=== PATIENT | male | born 1965 | race Native Hawaiian/Other Pacific Islander ===

== ENCOUNTER 2020-06-16 09:10 | Day surgery (SDC) | payer OTHER ==
[2020-06-16] VITALS (11 sets, daily range): BP systolic 126–173; BP diastolic 68–93
[~2020-06-16] VITALS: Ht 170.2 cm; Wt 129.1 kg
[~2020-06-16 09:10] MED LIST: AMLO10TA7 PO; AMLO5TAB4 PO; AMLO5TAB9 PO; ASPI-983 PO; ATOR20TA66 PO; ATOR80TA76 PO; CARV25TA PO; CLOP75TA28 PO; CRV25T PO; FURO-124 PO; FURO40TA4 PO; FURO80TA3 PO; GABA-488 PO; GLIP5TAB13 PO; HYDR-3817 PO; HYDR-3924 PO; INSU100I10 SC; INSU100I14 SQ; INSU100I23 SQ; LOSA100T57 PO; METO5TAB6 PO; OMEP20CA18 PO; POTA8CAP20 PO; POTA8TAB2 PO; PREG75CA PO; TICA90TA PO
[2020-06-16] MEDS ORDERED: NS IV 1000 ML 1,000 ML IV SCH (09:27)
--- NOTE | 2020-06-16 09:32 | ED Abdominal Pain ---
General Chief Complaint: Abdominal/GI Problems Stated Complaint: ABD PAIN Source of Information: Patient Exam Limitations: No Limitations History of Present Illness Date Seen by Provider: Jun 16, 2020 Time Seen by Provider: 09:14 Initial Comments Patient presents to ER by private conveyance from home with chief complaint that he's having some epigastric abdominal pain radiating to his right upper quadrant since yesterday after eating an apricot. It was intermittent gripping cramping like and sharp. Then he ate some pizza with meat on it which set off even worse until about 2 in the morning. He did not take anything for the pain. He does take omeprazole daily. He has a history of cholelithiasis being worked up o utpatient by his doctor at the [facility]. They're trying to get him set up for an MRCP. He does not follow with a surgeon yet. He's not having any fevers or nausea and just feeling of uncomfortableness. The car ride over was not any worse than it is now. He has a history of heart failure, heart disease, diabetes on short acting insulin, chronic kidney disease stage IV. He's had 3 separate surgeries for umbilical hernias including the last one had to resect about a 4 inch section of bowel that had become adhesed to the mesh. This has since then healed. He says last week his blood sugars are running normal round 140 using sliding scale insulin however the past few days they've been running high and he's had a couple above 300. No fevers or chills. No history of pancreatitis. He quit drinking 2 years ago. He does daily weights and says he was 281 yesterday and 284 this morning. He denies having increasing swelling in his legs or abdomen. Patient is on Brilinta but no blood thinners. Allergies and Home Medications Allergies Coded Allergies: No Known Drug Allergies (Unverified , 07/25/19) Home Medications Amlodipine Besylate 10 Mg Tablet, 10 MG PO DAILY, (Reported) Aspirin 81 Mg Tablet.dr, 81 MG PO DAILY, (Reported) Atorvastatin Calcium 80 Mg Tablet, 80 MG PO DAILY, (Reported) Carvedilol 25 Mg Tab, 25 MG PO BID, (Reported) Furosemide 40 Mg Tablet, 80 MG PO DAILY, (Reported) TAKES 2 (40MG) TABS Furosemide 40 Mg Tablet, 40 MG PO 1700, (Reported) Hydrocodone/Acetaminophen 1 Each Tablet, 1 EACH PO Q6H PRN for PAIN-SEVERE (8- 10) Prescribed by: MYAH LEYVA on 03/17/20 1321 Insulin Aspart 300 Units/3 Ml Solution, 15-25 UNITS SQ AC, (Reported) Insulin Glargine,Hum.rec.anlog 100 Unit/1 Ml Insuln.pen, 80 UNITS SC HS, (Reported) Losartan Potassium 100 Mg Tablet, 100 MG PO DAILY, (Reported) Metolazone 5 Mg Tablet, 5 MG PO DAILY, (Reported) Omeprazole 20 Mg Capsule.dr, 20 MG PO DAILY, (Reported) Potassium Chloride 8 Meq Tablet.er, 8 MEQ PO 1999, (Reported) Potassium Chloride 8 Meq Capsule.er, 16 MEQ PO DAILY, (Reported) TAKES 2 (8MEQ) TABS Pregabalin 75 Mg Capsule, 75 MG PO BID, (Reported) Ticagrelor 90 Mg Tablet, 90 MG PO BID, (Reported) Patient Home Medication List Home Medication List Reviewed: Yes Review of Systems Review of Systems Constitutional: No chills, No diaphoresis EENTM: No Blurred Vision, No Double Vision Respiratory: Denies Cough, Denies Shortness of Air Cardiovascular: Denies Chest Pain, Denies Edema Gastrointestinal: See HPI; Denies Abdomen Distended; Abdominal Pain; Denies Constipated, Denies Diarrhea, Denies Nausea Genitourinary: Denies Burning, Denies Discharge Musculoskeletal: No back pain, No joint pain Skin: No pruritus, No rash Psychiatric/Neurological: Denies Headache, Denies Numbness All Other Systems Reviewed Negative Unless Noted: Yes Past [place]-Oshkbb-Mvjfup Hx Patient Social History Alcohol Use: Past History Recreational Drug Use: No Smoking Status: Former Smoker Type Used: Smokeless Tobacco 2nd Hand Smoke Exposure: No Recent Foreign Travel: No Contact w/Someone Who Travel: No Recent Hopitalizations: Yes (ADMITTED TO [facility] 12/23/19) Immunizations Up To Date Tetanus Booster (TDap): Unknown Date of Influenza Vaccine: Sep 05, 2019 Seasonal Allergies Seasonal Allergies: No Past Medical History Surgeries: Yes (Colon resection, Left foot surgery, umbilical hernia repair) Abdominal, Bowel Surgery, Coronary Stent, Orthopedic Respiratory: Yes Sleep Apnea Currently Using CPAP: No (NEEDS A MACHINE BUT HAVING ISSUES GETTING ONE) Currently Using BIPAP: No Cardiac: Yes Chronic Edema/Swelling, Coronary Artery Disease, High Cholesterol, Hypertension Neurological: Yes Neuropathy, TIA Genitourinary: Yes Renal Failure Gastrointestinal: No Musculoskeletal: No Endocrine: Yes Diabetes, Insulin dep HEENT: No Loss of Vision: Denies Hearing Impairment: Denies Cancer: No Psychosocial: No 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 8.0oz. [id number]; 52.11 BMI Method:Stated General Appearance: WD/WN, mild distress HEENT: PERRL/EOMI, pharynx normal Neck: full range of motion, normal inspection Respiratory: lungs clear, normal breath sounds, no respiratory distress, no ac cessory muscle use Cardiovascular: normal peripheral pulses, regular rate, rhythm, no edema Peripheral Pulses: 2+ Radial Pulses (R), 2+ Radial Pulses (L) Gastrointestinal: normal bowel sounds, soft, no organomegaly; No guarding, No rebound (no McBurney's point tenderness); tenderness (negative for Purdy sign. Tenderness to the epigastric and right upper quadrant region) Extremities: non-tender, normal inspection, normal capillary refill Neurologic/Psychiatric: alert, normal mood/affect, oriented x 3 Skin: normal color, warm/dry Progress/Results/Core Measures Results/Orders Lab Results Laboratory Tests Test 06/16/20 09:16 06/16/20 09:29 Range/Units Urine Color YELLOW Urine Clarity CLEAR Urine pH 6.0 5-9 Urine Specific Protivin 1.025 H 1.016-1.022 Urine Protein 3+ H NEGATIVE Urine Glucose (UA) 1+ H NEGATIVE Urine Ketones NEGATIVE NEGATIVE Urine Nitrite NEGATIVE NEGATIVE Urine Bilirubin NEGATIVE NEGATIVE Urine Urobilinogen 0.2 < = 1.0 MG/DL Urine Leukocyte Esterase NEGATIVE NEGATIVE Urine RBC (Auto) TRACE H NEGATIVE Urine RBC RARE /HPF Urine WBC NONE /HPF Urine Crystals NONE /LPF Urine Bacteria NONE /HPF Urine Casts NONE /LPF Urine Mucus NEGATIVE /LPF Urine Culture Indicated NO White Blood Count 12.4 H 4.3-11.0 10^3/uL Red Blood Count 4.51 4.35-5.85 10^6/uL Hemoglobin 12.5 L 13.3-17.7 G/DL Hematocrit 38 L 40-54 % Mean Corpuscular Volume 83 80-99 FL Mean Corpuscular Hemoglobin 28 25-34 PG Mean Corpuscular Hemoglobin Concent 33 32-36 G/DL Red Cell Distribution Width 14.3 10.0-14.5 % Platelet Count 302 130-400 10^3/uL Mean Platelet Volume 9.6 7.4-10.4 FL Neutrophils (%) (Auto) 76 H 42-75 % Lymphocytes (%) (Auto) 12 12-44 % Monocytes (%) (Auto) 6 0-12 % Eosinophils (%) (Auto) 5 0-10 % Basophils (%) (Auto) 1 0-10 % Neutrophils # (Auto) 9.4 H 1.8-7.8 X 10^3 Lymphocytes # (Auto) 1.5 1.0-4.0 X 10^3 Monocytes # (Auto) 0.7 0.0-1.0 X 10^3 Eosinophils # (Auto) 0.6 H 0.0-0.3 10^3/uL Basophils # (Auto) 0.1 0.0-0.1 10^3/uL Sodium Level 135 135-145 MMOL/L Potassium Level 3.8 3.6-5.0 MMOL/L Chloride Level 95 L 98-107 MMOL/L Carbon Dioxide Level 27 21-32 MMOL/L Anion Gap 13 5-14 MMOL/L Blood Urea Nitrogen 54 H 7-18 MG/DL Creatinine 2.91 H 0.60-1.30 MG/DL Estimat Glomerular Filtration Rate 23 BUN/Creatinine Ratio 19 Glucose Level 264 H 70-105 MG/DL Calcium Level 9.9 8.5-10.1 MG/DL Corrected Calcium 10.0 8.5-10.1 MG/DL Total Bilirubin 0.6 0.1-1.0 MG/DL Aspartate Amino Transf (AST/SGOT) 11 5-34 U/L Alanine Aminotransferase (ALT/SGPT) 12 0-55 U/L Alkaline Phosphatase 124 40-136 U/L Pro-B-Type Natriuretic Peptide 346.9 H <75.0 PG/ML Total Protein 7.6 6.4-8.2 GM/DL Albumin 3.9 3.2-4.5 GM/DL Lipase 49 8-78 U/L My Orders Orders - SARAI CORONEL Ua Culture If Indicated (06/16/20 09:16) Us Gallbladder [id number] (06/16/20 09:27) Ed Iv/Invasive Line Start (06/16/20 09:27) Ns Iv 1000 Ml (Sodium Chloride 0.9%) (06/16/20 09:27) Cbc With Automated Diff (06/16/20 09:27) Comprehensive Metabolic Panel (06/16/20 09:27) Lipase (06/16/20 09:27) Chest 1 View Ap/Pa Only (06/16/20 09:27) Probnp Fs (06/16/20 09:27) Famotidine Injection (Pepcid Injection) (06/16/20 09:45) Medications Given in ED Current Medications Medications Dose Ordered Sig/Kaitlynn Route Start Time Stop Time Status Last Admin Dose Admin Famotidine 20 mg ONCE ONCE IVP 06/16/20 09:45 06/16/20 09:46 DC 06/16/20 10:02 20 MG Vital Signs/I&O 06/16/20 09:15 Temp 36.7 Pulse 62 Resp 18 B/P (MAP) 161/74 (103) Pulse Ox 97 O2 Delivery Room Air Progress Progress Note : Time: 09:35 Progress Note Cholecystitis, pancreatitis, choledocholithiasis, Gastritis? He doesn't want anything for pain right now however we will give him some Pepcid in addition to his omeprazole that he already took. He's complaining of a 3 pound weight gain in the past one day so we'll get a chest x-ray and a BNP as well. Urinalysis. Ultrasound gallbladder. Diagnostic Imaging Diagonstic Imaging: Xray Plain Films/CT/US/NM/MRI: chest Comments No acute cardiopulmonary processes on 1 on Chest x-ray. Reviewed: Reviewed by Me Diagonstic Imaging: Ultrasound Plain Films/CT/US/NM/MRI: abdomen (right upper quadrant gallbladder) Reviewed: Reviewed by Me Departure Communication (Admissions) Time/Spoke to Admitting Phy: 10:15 Discussed the case with Dr. Gill and he has offered to do the patient ate or outpatient or same day surgery today. The patient has elected to do it today. We discussed the labs heart failure kidney failure and Dr. Gill said he will talk to warehouse receiver and get set up so he can do the surgery today and if all goes well he would go home today. Impression Primary Impression: Cholelithiasis Qualified Codes: K80.20 - Calculus of gallbladder without cholecystitis without obstruction Additional Impression: Recurrent biliary colic Disposition: XFER SHT-TRM HOSP Condition: Stable Admissions Decision to Admit Reason: Admit from ER (General) Decision to Admit/Date: Jun 16, 2020 Time/Decision to Admit Time: 10:20 Departure-Patient Inst. Referrals: ESEQUIEL CARDONA DO (PCP/Family) Primary Care Physician SARAI CORONEL Jun 16, 2020 09:32
--- OUTSIDE RECORDS SUMMARY | 2020-06-16 09:32 | XMS REPORT | Continuity of Care Document ---
Author Organization Unknown Address Unknown Phone Unavailable Allergies Active Description Code Type Severity Reaction Onset Reported/Identified Relationship to Patient Clinical Status Yes NO KNOWN DRUG ALLERGIES UNKNOWN UNKNOWN Yes No Known Drug Allergies [id number] Drug Allergy Unknown N/A 07/25/2019 Medications Medication Packaging Start Date St op Date Route Dosage Sig NORMAL SALINE 1000CC IV BAG INJ 0.9 % (NS 1000CC IV BAG) ml 03/14/2020 03/29/2020 CONTINUOUSEVERY 0 Hour Problems Date Dx Coded Attending Type Code Diagnosis Diagnosed By 07/27/2019 ESEQUIEL CARDONA DO, Ot M54.9 DORSALGIA, UNSPECIFIED 07/27/2019 MYAH LEYVA MD Ot E11. 40 TYPE 2 DIABETES MELLITUS WITH DIABETIC N 07/27/2019 MYAH LEYVA MD, Ot E66. 01 MORBID (SEVERE) OBESITY DUE TO EXCESS CA 07/27/2019 MYAH LEYVA MD, Ot E78. 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 1 HYPERTENSIVE EMERGENCY 07/27/2019 MYAH LEYVA MD, Ot I25. 10 ATHSCL HEART DISEASE OF [place] CORONARY 07/27/2019 MYAH LEYVA MD, Ot I25. 2 OLD MYOCARDIAL INFARCTION 07/27/2019 MYAH LEYVA MD, Ot I50. 9 HEART FAILURE, UNSPECIFIED 07/27/2019 MYAH LEYVA MD, Ot N18. 9 CHRONIC KIDNEY DISEASE, UNSPECIFIED 07/27/2019 MYAH LEYVA MD, Ot Z68. 42 BODY MASS INDEX (BMI) 45.0-49.9, ADULT 07/27/2019 MYAH LEYVA MD, Ot Z79. 4 GUSSET STITCHER (CURRENT) USE OF INSULIN 07/27/2019 MYAH LEYVA MD, Ot Z86. 73 PRSNL HX OF TIA (TIA), AND CEREB INFRC W 07/27/2019 MYAH LEYVA MD, Ot E11. 21 TYPE 2 DIABETES MELLITUS WITH DIABETIC N 07/27/2019 MYAH LEYVA MD, Ot E11. 40 TYPE 2 DIABETES MELLITUS WITH DIABETIC N 07/27/2019 MYAH LEYVA MD, Ot E66. 01 MORBID (SEVERE) OBESITY DUE TO EXCESS CA 07/27/2019 MYAH LEYVA MD, Ot E78. 00 PURE HYPERCHOLESTEROLEMIA, UNSPECIFIED 07/27/2019 MYAH LEYVA MD, Ot E78. 5 HYPERLIPIDEMIA, UNSPECIFIED 07/27/2019 MYAH LEYVA MD, Ot I11. 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 1 HYPERTENSIVE EMERGENCY 07/27/2019 MYAH LEYVA MD, Ot I25. 10 ATHSCL HEART DISEASE OF [place] CORONARY 07/27/2019 MYAH LEYVA MD, Ot I25. 2 OLD MYOCARDIAL INFARCTION 07/27/2019 MYAH LEYVA MD Ot I50. 33 ACUTE ON CHRONIC DIASTOLIC (CONGESTIVE) 07/27/2019 MYAH LEYVA MD, Ot I50. 9 HEART FAILURE, UNSPECIFIED 07/27/2019 MYAH LEYVA MD, Ot N18. 9 CHRONIC KIDNEY DISEASE, UNSPECIFIED 07/27/2019 MYAH LEYVA MD, Ot Z68. 42 BODY MASS INDEX (BMI) 45.0-49.9, ADULT 07/27/2019 MYAH LEYVA MD, Ot Z79. 4 INTERMEDIATE (CURRENT) USE OF INSULIN 07/27/2019 MYAH LEYVA MD, Ot Z86. 73 PRSNL HX OF TIA (TIA), AND CEREB INFRC W 07/30/2019 LISBET WILL DO Ot E11.40 TYPE 2 DIABETES MELLITUS WITH DIABETIC N 07/30/2019 LISBET WILL DO Ot E78.00 PURE HYPERCHOLESTEROLEMIA, UNSPECIFIED 07/30/2019 LISBET WILL DO Ot I10 ESSENTIAL (PRIMARY) HYPERTENSION 07/30/2019 LISBET WILL DO Ot I11.0 HYPERTENSIVE HEART DISEASE WITH HEART FA 07/30/2019 LISBET WILL DO Ot I50.9 HEART FAILURE, UNSPECIFIED 07/30/2019 LISBET WILL DO, Ot Z79.02 INTERMEDIATE (CURRENT) USE OF ANTITHROMBOTI 07/30/2019 WILL DO, LISBET Ot Z79.4 INTERMEDIATE (CURRENT) USE OF INSULIN 07/30/2019 WILL DO, LISBET Ot Z80.0 FAMILY HISTORY OF MALIGNANT NEOPLASM OF 07/30/2019 WILL DO, LISBET Ot Z80.1 FAMILY HISTORY OF MALIG NEOPLASM OF [place] 07/30/2019 WILL DO, LISBET Ot Z86.73 PRSNL HX OF TIA (TIA), AND CEREB INFRC W 07/30/2019 WILL DO, LISBET Ot Z98.890 OTHER SPECIFIED POSTPROCEDURAL STATES 07/31/2019 WING GARCIA MD Ot E11.4 0 TYPE 2 DIABETES MELLITUS WITH DIABETIC N 07/31/2019 WING GARCIA MD Ot E78.0 0 PURE HYPERCHOLESTEROLEMIA, UNSPECIFIED 07/31/2019 WING GARCIA MD Ot I11.0 HYPERTENSIVE HEART DISEASE WITH HEART FA 07/31/2019 WING GARCIA MD Ot I50.9 HEART FAILURE, UNSPECIFIED 07/31/2019 WING GARCIA MD Ot R06.0 2 SHORTNESS OF BREATH 07/31/2019 WING GARCIA MD Ot Z79.0 2 GUSSET STITCHER (CURRENT) USE OF ANTITHROMBOTI 07/31/2019 WING GARCIA MD Ot Z79.4 INTERMEDIATE (CURRENT) USE OF INSULIN 07/31/2019 WING GARCIA MD Ot Z80.0 FAMILY HISTORY OF MALIGNANT NEOPLASM OF 07/31/2019 WING GARCIA MD Ot Z80.1 FAMILY HISTORY OF MALIG NEOPLASM OF [place] 07/31/2019 WING GARCIA MD Ot Z86.7 3 PRSNL HX OF TIA (TIA), AND CEREB INFRC W 07/31/2019 WING GARCIA MD Ot Z98.8 90 OTHER SPECIFIED POSTPROCEDURAL STATES 07/31/2019 ESEQUIEL CARDONA DO Ot M54.9 DORSALGIA, UNSPECIFIED 08/02/2019 WILL DO, LISBET Ot E11.40 TYPE 2 DIABETES MELLITUS WITH DIABETIC N 08/02/2019 WILL DO, LISBET Ot E78.00 PURE HYPERCHOLESTEROLEMIA, UNSPECIFIED 08/02/2019 WILL DO, LISBET Ot I10 ESSENTIAL (PRIMARY) HYPERTENSION 08/02/2019 WILL DO, LISBET Ot I11.0 HYPERTENSIVE HEART DISEASE WITH HEART FA 08/02/2019 WILL DO, LISBET Ot I50.9 HEART FAILURE, UNSPECIFIED 08/02/2019 WILL DO, LISBET Ot Z79.02 INTERMEDIATE (CURRENT) USE OF ANTITHROMBOTI 08/02/2019 WILL DO, LISBET Ot Z79.4 INTERMEDIATE (CURRENT) USE OF INSULIN 08/02/2019 WILL DO, LISBET Ot Z80.0 FAMILY HISTORY OF MALIGNANT NEOPLASM OF 08/02/2019 WILL DO, LISBET Ot Z80.1 FAMILY HISTORY OF MALIG NEOPLASM OF [place] 08/02/2019 WILL DO, LISBET Ot Z86.73 PRSNL HX OF TIA (TIA), AND CEREB INFRC W 08/02/2019 WILL DO, LISBET Ot Z98.890 OTHER SPECIFIED POSTPROCEDURAL STATES 08/05/2019 WING GARCIA MD Ot E11.4 0 TYPE 2 DIABETES MELLITUS WITH DIABETIC N 08/05/2019 WING GARCIA MD Ot E78.0 0 PURE HYPERCHOLESTEROLEMIA, UNSPECIFIED 08/05/2019 WING GARCIA MD Ot I11.0 HYPERTENSIVE HEART DISEASE WITH HEART FA 08/05/2019 WING GARCIA MD Ot I50.9 HEART FAILURE, UNSPECIFIED 08/05/2019 WING GARCIA MD Ot R06.0 2 SHORTNESS OF BREATH 08/05/2019 WING GARCIA MD, Ot Z79.0 2 INTERMEDIATE (CURRENT) USE OF ANTITHROMBOTI 08/05/2019 WING GARCIA MD Ot Z79.4 GUSSET STITCHER (CURRENT) USE OF INSULIN 08/05/2019 WING GARCIA MD Ot Z80.0 FAMILY HISTORY OF MALIGNANT NEOPLASM OF 08/05/2019 WING GARCIA MD Ot Z80.1 FAMILY HISTORY OF MALIG NEOPLASM OF [place] 08/05/2019 WING GARCIA MD Ot Z86.7 3 PRSNL HX OF TIA (TIA), AND CEREB INFRC W 08/05/2019 WING GARCIA MD Ot Z98.8 90 OTHER SPECIFIED POSTPROCEDURAL STATES 08/29/2019 ESEQUIEL CARDONA DO Ot M54.9 DORSALGIA, UNSPECIFIED 08/29/2019 Kingston HEBERT MD Ot E11 .9 TYPE 2 DIABETES MELLITUS WITHOUT COMPLIC 08/29/2019 Kingston HEBERT MD Ot I11 .0 HYPERTENSIVE HEART DISEASE WITH HEART FA 08/29/2019 EMILEE MATTHEWS, Kingston SEYMOUR Ot I24 .9 ACUTE ISCHEMIC HEART DISEASE, UNSPECIFIE 08/29/2019 EMILEE MATTHEWS, [place] SEYMOUR Ot I50.32 CHRONIC DIASTOLIC (CONGESTIVE) HEART SOCORRO 09/06/2019 EMILEE MATTHEWS, Kingston SEYMOUR Ot E11 .9 TYPE 2 DIABETES MELLITUS WITHOUT COMPLIC 09/06/2019 Kingston HEBERT MD Ot I11 .0 HYPERTENSIVE HEART DISEASE WITH HEART FA 09/06/2019 EMILEE MATTHEWS, [place] SEYMOUR Ot I24 .9 ACUTE ISCHEMIC HEART DISEASE, UNSPECIFIE 09/06/2019 Kingston HEBERT MD, Ot I50.32 CHRONIC DIASTOLIC (CONGESTIVE) HEART SOCORRO 09/12/2019 ESEQUIEL CARDONA DO Ot M54.9 DORSALGIA, UNSPECIFIED 11/27/2019 JLILIAN GUPTA MD, Ot E11.22 TYPE 2 DIABETES MELLITUS W DIABETIC RADAR TESTER 11/27/2019 JILLIAN GUPTA MD, Ot E11.40 TYPE 2 DIABETES MELLITUS WITH DIABETIC N 11/27/2019 JILLIAN GUPTA MD, Ot E78.00 PURE HYPERCHOLESTEROLEMIA, UNSPECIFIED 11/27/2019 JILLIAN GUPTA MD, Ot I13.0 HYP HRT CHR [place] DIS W HRT FAIL AND ST 11/27/2019 JILLIAN GUPTA MD, Ot I50.9 HEART FAILURE, UNSPECIFIED 11/27/2019 JILLIAN GUPTA MD, Ot N18.3 CHRONIC KIDNEY DISEASE, STAGE 3 (MODERAT 11/27/2019 JILLIAN GUPTA MD, Ot R06.02 SHORTNESS OF BREATH 11/27/2019 JILLIAN GUPTA MD, Ot Z79.02 INTERMEDIATE (CURRENT) USE OF ANTITHROMBOTI 11/27/2019 JILLIAN GUPTA MD, Ot Z79.4 INTERMEDIATE (CURRENT) USE OF INSULIN 11/27/2019 JILLIAN GUPTA MD, Ot Z80.0 FAMILY HISTORY OF MALIGNANT NEOPLASM OF 11/27/2019 JILLIAN GUPTA MD, Ot Z80.1 FAMILY HISTORY OF MALIG NEOPLASM OF [place] 11/27/2019 JILLIAN GUPTA MD, Ot Z86.73 PRSNL HX OF TIA (TIA), AND CEREB INFRC W 11/27/2019 JILLIAN GUPTA MD, Ot Z90.49 ACQUIRED ABSENCE OF OTHER SPECIFIED PART 12/03/2019 JILLIAN GUPTA MD, Ot E11.22 TYPE 2 DIABETES MELLITUS W DIABETIC RADAR TESTER 12/03/2019 CANDY MATTHEWS, JILLIAN Walker Ot E11.40 TYPE 2 DIABETES MELLITUS WITH DIABETIC N 12/03/2019 JILLIAN GUPTA MD, Ot E78.00 PURE HYPERCHOLESTEROLEMIA, UNSPECIFIED 12/03/2019 JILLIAN GUPTA MD Ot I13.0 HYP HRT CHR [place] DIS W HRT FAIL AND ST 12/03/2019 JILLIAN GUPTA MD, Ot I50.9 HEART FAILURE, UNSPECIFIED 12/03/2019 JILLIAN GUPTA MD, Ot N18.3 CHRONIC KIDNEY DISEASE, STAGE 3 (MODERAT 12/03/2019 JILLIAN GUPTA MD Ot R06.02 SHORTNESS OF BREATH 12/03/2019 JILLIAN GUPTA MD, Ot Z79.02 INTERMEDIATE (CURRENT) USE OF ANTITHROMBOTI 12/03/2019 JILLIAN GUPTA MD, Ot Z79.4 INTERMEDIATE (CURRENT) USE OF INSULIN 12/03/2019 JILLIAN GUPTA MD, Ot Z80.0 FAMILY HISTORY OF MALIGNANT NEOPLASM OF 12/03/2019 JILLIAN GUPTA MD, Ot Z80.1 FAMILY HISTORY OF MALIG NEOPLASM OF [place] 12/03/2019 JILLIAN GUPTA MD, Ot Z86.73 PRSNL HX OF TIA (TIA), AND CEREB INFRC W 12/03/2019 JILLIAN GUPTA MD, Ot Z90.49 ACQUIRED ABSENCE OF OTHER SPECIFIED PART 12/06/2019 ESEQUIEL CARDONA DO Ot M54.9 DORSALGIA, UNSPECIFIED 12/06/2019 Kingston HEBERT MD, Ot E11 .9 TYPE 2 DIABETES MELLITUS WITHOUT COMPLIC 12/06/2019 Kingston HEBERT MD Ot I11 .0 HYPERTENSIVE HEART DISEASE WITH HEART FA 12/06/2019 Kingston HEBERT MD Ot I24 .9 ACUTE ISCHEMIC HEART DISEASE, UNSPECIFIE 12/06/2019 Kingston HEBERT MD, Ot I50.32 CHRONIC DIASTOLIC (CONGESTIVE) HEART SOCORRO 12/07/2019 Kingston HEBERT MD, Ot E11.22 TYPE 2 DIABETES MELLITUS W DIABETIC RADAR TESTER 12/07/2019 Kingston HEBERT MD, Ot E66 .9 OBESITY, UNSPECIFIED 12/07/2019 Kingston HEBERT MD, Ot E78 .5 HYPERLIPIDEMIA, UNSPECIFIED 12/07/2019 Kingston HEBERT MD Ot 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 12/07/2019 Kingston HEBERT MD, Ot I25.10 ATHSCL HEART DISEASE OF [place] CORONARY 12/07/2019 Kingston HEBERT MD Ot I50.32 CHRONIC DIASTOLIC (CONGESTIVE) HEART SOCORRO 12/07/2019 Kingston HEBERT MD, Ot N18 .9 CHRONIC KIDNEY DISEASE, UNSPECIFIED 12/07/2019 Kingston HEBERT MD Ot Z79.02 GUSSET STITCHER (CURRENT) USE OF ANTITHROMBOTI 12/07/2019 Kingston HEBERT MD Ot Z79.899 OTHER GUSSET STITCHER (CURRENT) DRUG THERAPY 12/07/2019 Kingston HEBERT MD, Ot Z80 .9 FAMILY HISTORY OF MALIGNANT NEOPLASM, UN 12/07/2019 Kingsotn HEBERT MD, Ot Z82 .3 FAMILY HISTORY OF STROKE 12/07/2019 Kingston HEBERT MD, Ot Z82.49 FAMILY HX OF ISCHEM HEART DIS AND OTH DI 12/07/2019 Kingston HEBERT MD, Ot Z83 .3 FAMILY HISTORY OF DIABETES MELLITUS 12/07/2019 Kingston HEBERT MD, Ot Z86.73 PRSNL HX OF TIA (TIA), AND CEREB INFRC W 12/07/2019 Kingston HEBERT MD, Ot Z87.891 PERSONAL HISTORY OF NICOTINE DEPENDENCE 12/10/2019 Kingston HEBERT MD Ot E11.22 TYPE 2 DIABETES MELLITUS W DIABETIC RADAR TESTER 12/10/2019 Kingston HEBERT MD Ot E66 .9 OBESITY, UNSPECIFIED 12/10/2019 Kingston HEBERT MD, Ot E78 .5 HYPERLIPIDEMIA, UNSPECIFIED 12/10/2019 Kingston HEBERT MD Ot 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 12/10/2019 Kingston HEBERT MD Ot I25.10 ATHSCL HEART DISEASE OF [place] CORONARY 12/10/2019 Kingston HEBERT MD Ot I50.32 CHRONIC DIASTOLIC (CONGESTIVE) HEART SOCORRO 12/10/2019 Kingston HEBERT MD, Ot N18 .9 CHRONIC KIDNEY DISEASE, UNSPECIFIED 12/10/2019 Kingston HEBERT MD, Ot Z79.02 GUSSET STITCHER (CURRENT) USE OF ANTITHROMBOTI 12/10/2019 Kingston HEBERT MD, Ot Z79.899 OTHER GUSSET STITCHER (CURRENT) DRUG THERAPY 12/10/2019 Kingston HEBERT MD, Ot Z80 .9 FAMILY HISTORY OF MALIGNANT NEOPLASM, UN 12/10/2019 iKngston HEBERT MD, Ot Z82 .3 FAMILY HISTORY OF STROKE 12/10/2019 Kingston HEBERT MD, Ot Z82.49 FAMILY HX OF ISCHEM HEART DIS AND OTH DI 12/10/2019 Kingston HEBERT MD, Ot Z83 .3 FAMILY HISTORY OF DIABETES MELLITUS 12/10/2019 Kingston HEBERT MD, Ot Z86.73 PRSNL HX OF TIA (TIA), AND CEREB INFRC W 12/10/2019 Kingston HEBERT MD, Ot Z87.891 PERSONAL HISTORY OF NICOTINE DEPENDENCE 12/11/2019 Kingston HEBERT MD Ot E11.22 TYPE 2 DIABETES MELLITUS W DIABETIC RADAR TESTER 12/11/2019 Kingston HEBERT MD, Ot E66 .9 OBESITY, UNSPECIFIED 12/11/2019 Kingston HEBERT MD, Ot E78 .5 HYPERLIPIDEMIA, UNSPECIFIED 12/11/2019 Kingston HEBERT MD, Ot 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 12/11/2019 Kingston HEBERT MD, Ot I25.10 ATHSCL HEART DISEASE OF [place] CORONARY 12/11/2019 Kingston HEBERT MD, Ot I50.32 CHRONIC DIASTOLIC (CONGESTIVE) HEART SOCORRO 12/11/2019 Kingston HEBERT MD, Ot N18 .9 CHRONIC KIDNEY DISEASE, UNSPECIFIED 12/11/2019 Kingston HEBERT MD, Ot Z79.02 GUSSET STITCHER (CURRENT) USE OF ANTITHROMBOTI 12/11/2019 Kingston HEBERT MD, Ot Z79.899 OTHER GUSSET STITCHER (CURRENT) DRUG THERAPY 12/11/2019 Kingston HEBERT MD, Ot Z80 .9 FAMILY HISTORY OF MALIGNANT NEOPLASM, UN 12/11/2019 EMILEE MATTHEWS, [place] SEYMOUR Ot Z82 .3 FAMILY HISTORY OF STROKE 12/11/2019 Kingston HEBERT MD, Ot Z82.49 FAMILY HX OF ISCHEM HEART DIS AND OTH DI 12/11/2019 Kingston HEBERT MD, Ot Z83 .3 FAMILY HISTORY OF DIABETES MELLITUS 12/11/2019 Kingston HEBERT MD, Ot Z86.73 PRSNL HX OF TIA (TIA), AND CEREB INFRC W 12/11/2019 Kingston HEBERT MD, Ot Z87.891 PERSONAL HISTORY OF NICOTINE DEPENDENCE 12/13/2019 Kingston HEBERT MD, Ot E11 .9 TYPE 2 DIABETES MELLITUS WITHOUT COMPLIC 12/13/2019 Kingston HEBERT MD, Ot I11 .0 HYPERTENSIVE HEART DISEASE WITH HEART FA 12/13/2019 Kingston HEBERT MD, Ot I24 .9 ACUTE ISCHEMIC HEART DISEASE, UNSPECIFIE 12/13/2019 Kingston HEBERT MD, Ot I50.32 CHRONIC DIASTOLIC (CONGESTIVE) HEART SOCORRO 12/23/2019 ESEQUIEL CARDONA DO Ot M54.9 DORSALGIA, UNSPECIFIED 12/23/2019 Kingston HEBERT MD, Ot E11 .9 TYPE 2 DIABETES MELLITUS WITHOUT COMPLIC 12/23/2019 Kingston HEBERT MD, Ot I11 .0 HYPERTENSIVE HEART DISEASE WITH HEART FA 12/23/2019 Kingston HEBERT MD, Ot I24 .9 ACUTE ISCHEMIC HEART DISEASE, UNSPECIFIE 12/23/2019 Kingston HEBERT MD, Ot I50.32 CHRONIC DIASTOLIC (CONGESTIVE) HEART SOCORRO 12/24/2019 MARYAM MOMIN MD Ot A49. 02 METHICILLIN RESIS STAPH INFECTION, UNSP 12/24/2019 MARYAM MOMIN MD, Ot E11. 40 TYPE 2 DIABETES MELLITUS WITH DIABETIC N 12/24/2019 MARYAM MOMIN MD, Ot E11.622 TYPE 2 DIABETES MELLITUS WITH OTHER SKIN 12/24/2019 MARYAM MOMIN MD, Ot E27. 9 DISORDER OF ADRENAL GLAND, UNSPECIFIED 12/24/2019 MARYAM MOMIN MD, Ot E66. 9 OBESITY, UNSPECIFIED 12/24/2019 MARYAM MOMIN MD, Ot E78. 00 PURE HYPERCHOLESTEROLEMIA, UNSPECIFIED 12/24/2019 MARYAM MOMIN MD, Ot E87. 1 HYPO-OSMOLALITY AND HYPONATREMIA 12/24/2019 MARYAM MOMIN MD, Ot F17.220 NICOTINE DEPENDENCE, CHEWING TOBACCO, UN 12/24/2019 MARYAM MOMIN MD, Ot G47. 30 SLEEP APNEA, UNSPECIFIED 12/24/2019 MARYAM MOMIN MD, Ot I13. 0 HYP HRT CHR [place] DIS W HRT FAIL AND ST 12/24/2019 MARYAM MOMIN MD, Ot I25. 10 ATHSCL HEART DISEASE OF [place] CORONARY 12/24/2019 MARYAM MOMIN MD, Ot I50. 9 HEART FAILURE, UNSPECIFIED 12/24/2019 MARYAM MOMIN MD, Ot I87. 8 OTHER SPECIFIED DISORDERS OF VEINS 12/24/2019 MARYAM MOMIN MD, Ot J18. 9 PNEUMONIA, UNSPECIFIED ORGANISM 12/24/2019 MARYAM MOMIN MD, Ot K56.699 OTHER INTESTNL OBST UNSP TO PARTIAL V 12/24/2019 MARYAM MOMIN MD Ot K80. 20 CALCULUS OF GALLBLADDER W/O CHOLECYSTITI 12/24/2019 MARYAM MOMIN MD Ot L97.919 NON-PRS CHRONIC ULC UNSP PRT OF R LOW LE 12/24/2019 MARYAM MOMIN MD Ot N18. 9 CHRONIC KIDNEY DISEASE, UNSPECIFIED 12/24/2019 MARYAM MOMIN MD Ot R82. 71 BACTERIURIA 12/24/2019 MARYAM MOMIN MD, Ot Z68. 42 BODY MASS INDEX (BMI) 45.0-49.9, ADULT 12/24/2019 MARYAM MOMIN MD, Ot Z79. 4 INTERMEDIATE (CURRENT) USE OF INSULIN 12/24/2019 MARYAM MOMIN MD Ot Z86. 73 PRSNL HX OF TIA (TIA), AND CEREB INFRC W 12/24/2019 MARYAM MOMIN MD Ot Z90. 49 ACQUIRED ABSENCE OF OTHER SPECIFIED PART 12/24/2019 MARYAM MOMIN MD Ot Z95. 5 PRESENCE OF CORONARY ANGIOPLASTY IMPLANT 12/25/2019 MARYAM MOMIN MD Ot A49. 02 METHICILLIN RESIS STAPH INFECTION, UNSP 12/25/2019 MARYAM MOMIN MD, Ot E11. 40 TYPE 2 DIABETES MELLITUS WITH DIABETIC N 12/25/2019 MARYAM MOMIN MD, Ot E11.622 TYPE 2 DIABETES MELLITUS WITH OTHER SKIN 12/25/2019 MARYAM MOMIN MD, Ot E11. 65 TYPE 2 DIABETES MELLITUS WITH HYPERGLYCE 12/25/2019 MARYAM MOMIN MD, Ot E27. 9 DISORDER OF [place]NAL [place], UNSPECIFIED 12/25/2019 MARYAM MOMIN MD, Ot E66. 9 OBESITY, UNSPECIFIED 12/25/2019 MARYAM MOMIN MD, Ot E78. 00 PURE HYPERCHOLESTEROLEMIA, UNSPECIFIED 12/25/2019 MARYAM MOMIN MD, Ot E87. 1 HYPO-OSMOLALITY AND HYPONATREMIA 12/25/2019 MARYAM MOMIN MD Ot F17.220 NICOTINE DEPENDENCE, CHEWING TOBACCO, UN 12/25/2019 MARYAM MOMIN MD, Ot G47. 30 SLEEP APNEA, UNSPECIFIED 12/25/2019 MARYAM MOMIN MD Ot I13. 0 HYP HRT CHR [place] DIS W HRT FAIL AND ST 12/25/2019 MARYAM MOMIN MD, Ot I25. 10 ATHSCL HEART DISEASE OF [place] CORONARY 12/25/2019 MARYAM MOMIN MD, Ot I50. 32 CHRONIC DIASTOLIC (CONGESTIVE) HEART SOCORRO 12/25/2019 MARYAM MOMIN MD, Ot I50. 9 HEART FAILURE, UNSPECIFIED 12/25/2019 MARYAM MOMIN MD Ot I87. 8 OTHER SPECIFIED DISORDERS OF VEINS 12/25/2019 MARYAM MOMIN MD, Ot J18. 9 PNEUMONIA, UNSPECIFIED ORGANISM 12/25/2019 MRAYAM MOMIN MD, Ot K56.699 OTHER INTESTNL OBST UNSP TO PARTIAL V 12/25/2019 MARYAM MOMIN MD Ot K80. 20 CALCULUS OF GALLBLADDER W/O CHOLECYSTITI 12/25/2019 MARYAM MOMIN MD, Ot L97.919 NON-PRS CHRONIC ULC UNSP PRT OF R LOW LE 12/25/2019 MARYAM MOMIN MD, Ot N18. 9 CHRONIC KIDNEY DISEASE, UNSPECIFIED 12/25/2019 MARYAM MOMIN MD, Ot R82. 71 BACTERIURIA 12/25/2019 MARYAM MOMIN MD, Ot R82. 79 OTHER ABNORMAL FINDINGS ON MICROBIOLOG E 12/25/2019 MARYAM MOMIN MD, Ot Z23 ENCOUNTER FOR IMMUNIZATION 12/25/2019 MARYAM MOMIN MD, Ot Z68. 42 BODY MASS INDEX (BMI) 45.0-49.9, ADULT 12/25/2019 MARYAM MOMIN MD, Ot Z79. 4 GUSSET STITCHER (CURRENT) USE OF INSULIN 12/25/2019 MARYAM MOMIN MD, Ot Z79. 82 GUSSET STITCHER (CURRENT) USE OF ASPIRIN 12/25/2019 MARYAM MOMIN MD, Ot Z86. 73 PRSNL HX OF TIA (TIA), AND CEREB INFRC W 12/25/2019 MARYAM MOMIN MD, Ot Z90. 49 ACQUIRED ABSENCE OF OTHER SPECIFIED PART 12/25/2019 MARYAM MOMIN MD, Ot Z95. 5 PRESENCE OF CORONARY ANGIOPLASTY IMPLANT 02/26/2020 ESEQUIEL CARDONA DO Ot M54.1 6 RADICULOPATHY, LUMBAR REGION 02/26/2020 ESEQUIEL CARDONA DO Ot Z53.9 PROCEDURE AND TREATMENT NOT CARRIED OUT, 03/14/2020 Fransisco Castillo 272.4 OTHER AND UNSPECIFIED HYPERLIPIDEMIA 03/14/2020 Fransisco Castillo 278.01 MORBID OBESITY 03/14/2020 Fransisco Castillo 401.0 MALIGNANT ESSENTIAL HYPERTENSION 03/14/2020 Fransisco Castillo 414.01 CORONARY ATHEROSCLEROSIS OF [place] CORONARY ARTERY 03/14/2020 Fransisco Castillo 584.9 ACUTE KIDNEY FAILURE, UNSPECIFIED 03/14/2020 Fransisco Castillo E66.01 MORBID (SEVERE) OBESITY DUE TO EXCESS CALORIES 03/14/2020 Fransisco Castillo E78.5 HYPERLIPIDEMIA, UNSPECIFIED 03/14/2020 Fransisco Castillo I10 ESSENTIAL (PRIMARY) HYPERTENSION 03/14/2020 Fransisco Castillo I25.10 ATHSCL HEART DISEASE OF [place] CORONARY ARTERY W/O ANG PCTRS 03/14/2020 Fransisco Castillo N17.9 ACUTE KIDNEY FAILURE, UNSPECIFIED 03/17/2020 MARYAM MOMIN MD, Ot E11. 40 TYPE 2 DIABETES MELLITUS WITH DIABETIC N 03/17/2020 MARYAM MOMIN MD Ot E78. 00 PURE HYPERCHOLESTEROLEMIA, UNSPECIFIED 03/17/2020 MARYAM MOMIN MD, Ot G47. 30 SLEEP APNEA, UNSPECIFIED 03/17/2020 MARYAM MOMIN MD Ot I13. 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 10 ATHSCL HEART DISEASE OF [place] CORONARY 03/17/2020 MARYAM MOMIN MD Ot I50. 9 HEART FAILURE, UNSPECIFIED 03/17/2020 MARYAM MOMIN MD, Ot N17. 9 ACUTE KIDNEY FAILURE, UNSPECIFIED 03/17/2020 MARYAM MOMIN MD, Ot N18. 3 CHRONIC KIDNEY DISEASE, STAGE 3 (MODERAT 03/17/2020 MARYAM MOMIN MD Ot R05 COUGH 03/17/2020 MARYAM MOMIN MD, Ot Z79. 4 GUSSET STITCHER (CURRENT) USE OF INSULIN 03/17/2020 MARYAM MOMIN MD, Ot Z86. 73 PRSNL HX OF TIA (TIA), AND CEREB INFRC W 03/17/2020 MARYAM MOMIN MD, Ot Z87.891 PERSONAL HISTORY OF NICOTINE DEPENDENCE 03/17/2020 MARYAM MOMIN MD Ot Z95. 5 PRESENCE OF CORONARY ANGIOPLASTY IMPLANT 03/17/2020 MARYAM MOMIN MD, Ot E11. 40 TYPE 2 DIABETES MELLITUS WITH DIABETIC N 03/17/2020 MARYAM MOMIN MD Ot E78. 00 PURE HYPERCHOLESTEROLEMIA, UNSPECIFIED 03/17/2020 MARYAM MOMIN MD, Ot G47. 30 SLEEP APNEA, UNSPECIFIED 03/17/2020 MARYAM MOMIN MD Ot I13. 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 10 ATHSCL HEART DISEASE OF [place] CORONARY 03/17/2020 MARYAM MOMIN MD Ot I50. 9 HEART FAILURE, UNSPECIFIED 03/17/2020 MARYAM MOMIN MD Ot N17. 9 ACUTE KIDNEY FAILURE, UNSPECIFIED 03/17/2020 MARYAM MOMIN MD Ot N18. 3 CHRONIC KIDNEY DISEASE, STAGE 3 (MODERAT 03/17/2020 MARYAM MOMIN MD Ot R05 COUGH 03/17/2020 MARYAM MOMIN MD, Ot Z79. 4 INTERMEDIATE (CURRENT) USE OF INSULIN 03/17/2020 MARYAM MOMIN MD, Ot Z86. 73 PRSNL HX OF TIA (TIA), AND CEREB INFRC W 03/17/2020 MARYAM MOMIN MD, Ot Z87.891 PERSONAL HISTORY OF NICOTINE DEPENDENCE 03/17/2020 MARYAM MOMIN MD, Ot Z95. 5 PRESENCE OF CORONARY ANGIOPLASTY IMPLANT 04/22/2020 MARYAM MOMIN MD, Ot D64. 9 ANEMIA, UNSPECIFIED 04/22/2020 MARYAM MOMIN MD, Ot E11. 21 TYPE 2 DIABETES MELLITUS WITH DIABETIC N 04/22/2020 MARYAM MOMIN MD, Ot E11. 22 TYPE 2 DIABETES MELLITUS W DIABETIC RADAR TESTER 04/22/2020 MARYAM MOMIN MD, Ot E11. 42 TYPE 2 DIABETES MELLITUS WITH DIABETIC P 04/22/2020 MARYAM MOMIN MD Ot E66. 9 OBESITY, UNSPECIFIED 04/22/2020 MARYAM MOMIN MD Ot E78. 00 PURE HYPERCHOLESTEROLEMIA, UNSPECIFIED 04/22/2020 MARYAM MOMIN MD, Ot E78. 5 HYPERLIPIDEMIA, UNSPECIFIED 04/22/2020 MARYAM MOMIN MD Ot E87. 70 FLUID OVERLOAD, UNSPECIFIED 04/22/2020 MARYAM MOMIN MD Ot F17.290 NICOTINE DEPENDENCE, OTHER TOBACCO PRODU 04/22/2020 MARYAM MOMIN MD, Ot G47. 30 SLEEP APNEA, UNSPECIFIED 04/22/2020 MARYAM MOMIN MD Ot I07. 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 10 ATHSCL HEART DISEASE OF [place] CORONARY 04/22/2020 MARYAM MOMIN MD Ot I50. 33 ACUTE ON CHRONIC DIASTOLIC (CONGESTIVE) 04/22/2020 MARYAM MOMIN MD, Ot N17. 9 ACUTE KIDNEY FAILURE, UNSPECIFIED 04/22/2020 MARYAM MOMIN MD, Ot N18. 9 CHRONIC KIDNEY DISEASE, UNSPECIFIED 04/22/2020 MARYAM MOMIN MD Ot R34 ANURIA AND OLIGURIA 04/22/2020 MARYAM MOMIN MD, Ot Z79. 4 INTERMEDIATE (CURRENT) USE OF INSULIN 04/22/2020 MARYAM MOMIN MD, Ot Z86. 73 PRSNL HX OF TIA (TIA), AND CEREB INFRC W 04/22/2020 MARYAM MOMIN MD, Ot Z95. 5 PRESENCE OF CORONARY ANGIOPLASTY IMPLANT 04/26/2020 ESEQUIEL CARDONA DO Ot M54.9 DORSALGIA, UNSPECIFIED 04/26/2020 [place] HEBERT MD Ot E11 .9 TYPE 2 DIABETES MELLITUS WITHOUT COMPLIC 04/26/2020 [place] HEBERT MD Ot I11 .0 HYPERTENSIVE HEART DISEASE WITH HEART FA 04/26/2020 [place] HEBERT MD, Ot I24 .9 ACUTE ISCHEMIC HEART DISEASE, UNSPECIFIE 04/26/2020 [place] HEBERT MD Ot I50.32 CHRONIC DIASTOLIC (CONGESTIVE) HEART SOCORRO 04/26/2020 ESEQUIEL CARDONA DO Ot M54.1 6 RADICULOPATHY, LUMBAR REGION 04/26/2020 ESEQUIEL CARDONA DO Ot Z53.9 PROCEDURE AND TREATMENT NOT CARRIED OUT, 05/14/2020 ESEQUIEL CARDONA DO Ot M54.9 DORSALGIA, UNSPECIFIED 05/14/2020 [place] HEBERT MD Ot E11 .9 TYPE 2 DIABETES MELLITUS WITHOUT COMPLIC 05/14/2020 [place] HEBERT MD Ot I11 .0 HYPERTENSIVE HEART DISEASE WITH HEART FA 05/14/2020 [place] HEBERT MD Ot I24 .9 ACUTE ISCHEMIC HEART DISEASE, UNSPECIFIE 05/14/2020 [place] HEBERT MD Ot I50.32 CHRONIC DIASTOLIC (CONGESTIVE) HEART SOCORRO 05/14/2020 ESEQUIEL CARDONA DO Ot M54.1 6 RADICULOPATHY, LUMBAR REGION 05/14/2020 ESEQUIEL CARDONA DO Ot Z53.9 PROCEDURE AND TREATMENT NOT CARRIED OUT, 05/22/2020 ESEQUIEL CARDONA DO Ot M54.9 DORSALGIA, UNSPECIFIED 05/22/2020 [place] HEBERT MD, Ot E11 .9 TYPE 2 DIABETES MELLITUS WITHOUT COMPLIC 05/22/2020 [place] HEBERT MD, Ot I11 .0 HYPERTENSIVE HEART DISEASE WITH HEART FA 05/22/2020 [place] HEBERT MD, Ot I24 .9 ACUTE ISCHEMIC HEART DISEASE, UNSPECIFIE 05/22/2020 [place] HEBERT MD, Ot I50.32 CHRONIC DIASTOLIC (CONGESTIVE) HEART SOCORRO 05/22/2020 ESEQUIEL CARDONA DO, Ot M54.1 6 RADICULOPATHY, LUMBAR REGION 05/22/2020 ESEQUIEL CARDONA DO, Ot Z53.9 PROCEDURE AND TREATMENT NOT CARRIED OUT, Procedures Code Description Performed By Per formed On [id number] DR LONGO OF STOMACH WITH DRAINAGE DEVICE 12/23/2019 Results Test Result Range PT panel in platelet poor plasma by coag ulation assay - 07/25/19 11:50 Prothrombin time (PT) in platelet poor plasma by coagu lation assay 12.8 s 12.2-14.7 INR in platelet poor plasma or blood by coagulation as say 0.9 0.8-1.4 Activated partial thromboplastin time (a PTT) in platelet poor plasma bycoagulation assay - 07/25/19 11:50 Activated partial thromboplastin time (a PTT) in platelet poor plasma bycoagulation assay 28 s 24-35 Comprehensive metabolic panel - 07/25/19 11:50 Serum or plasma sodium measurement (moles/volume) 138 mmol/L 135-145 Serum or plasma potassium measurement (moles/volume) 4.1 mmol/L 3.6-5.0 Serum or plasma chloride measurement (moles/volume) 98 mmol/L 98-107 Carbon dioxide 28 mmol/L 21-32 Serum or plasma anion gap determination (moles/volume) 12 mmol/L 5-14 Serum or plasma urea nitrogen measurement (mass/volume ) 19 mg/dL 7-18 Serum or plasma creatinine measurement (mass/volume) 1.55 mg/dL 0.60-1.30 Serum or plasma urea nitrogen/creatinine mass ratio 12 NRG Serum or plasma creatinine measurement w ith calculation of estimated glomerular filtration rate 47 NRG Serum or plasma glucose measurement (mass/volume) 271 mg/dL 70-105 Serum or plasma calcium measurement (mass/volume) 9.5 mg/dL 8.5-10.1 Serum or plasma total bilirubin measurement (mass/volu me) 0.5 mg/dL 0.1-1.0 Serum or plasma alkaline phosphatase federico surement (enzymatic activity/volume) 110 U/L 40-136 Serum or plasma aspartate aminotransfera se measurement (enzymatic activity/volume) 13 U/L 5-34 Serum or plasma alanine aminotransferase measurement (enzymatic activity/volume) 11 U/L 0-55 Serum or plasma protein measurement (mass/volume) 6.8 g/dL 6.4-8.2 Serum or plasma albumin measurement (mass/volume) 3.2 g/dL 3.2-4.5 CALCIUM CORRECTED 10.1 mg/dL 8.5-10.1 Magnesium - 07/25/19 11:50 Magnesium 2.1 mg/dL 1.6-2.4 Serum or plasma troponin i.cardiac measu rement (mass/volume) - 07/25/19 11:50 Serum or plasma troponin i.cardiac measurement (mass/v olume) < ng/mL <0.30 PROBNP FS - 07/25/19 11:50 PROBNP FS 1525.0 pg/mL <75.0 Lipase - 07/25/19 11:50 Lipase 36 U/L 8-78 Complete blood count (CBC) with automate d white blood cell (WBC) differential - 07/25/19 11:50 Blood leukocytes automated count (number/volume) 7.8 10*3/uL 4.3-11.0 Blood erythrocytes automated count (number/volume) 5.04 10*6/uL 4.35-5.85 Venous blood hemoglobin measurement (mass/volume) 13.8 g/dL 13.3-17.7 Blood hematocrit (volume fraction) 42 % 40-54 Automated erythrocyte mean corpuscular volume 84 [ foz_us] 80-99 Automated erythrocyte mean corpuscular h emoglobin (mass per erythrocyte) 27 pg 25-34 Automated erythrocyte mean corpuscular h emoglobin concentration measurement (mass/volume) 33 g/dL 32-36 Automated erythrocyte distribution width ratio 14. 3 % 10.0- 14.5 Automated blood platelet count (count/volume) 244 10*3/uL 130-400 Automated blood platelet mean volume measurement 9.3 [foz_us] 7.4-10.4 Automated blood neutrophils/100 leukocytes 61 % 42-75 Automated blood lymphocytes/100 leukocytes 18 % 12-44 Blood monocytes/100 leukocytes 8 % 0-12 Automated blood eosinophils/100 leukocytes 12 % 0-10 Automated blood basophils/100 leukocytes 1 % 0-10 Blood neutrophils automated count (number/volume) 4.7 10*3 1.8-7.8 Blood lymphocytes automated count (number/volume) 1.4 10*3 1.0-4.0 Blood monocytes automated count (number/volume) 0. 6 10*3 0.0-1.0 Automated eosinophil count 0.9 10*3/uL 0 .0-0.3 Automated blood basophil count (count/volume) 0.1 10*3/uL 0.0-0.1 Complete urinalysis with reflex to cultu re - 07/25/19 12:23 Urine color determination YELLOW NRG Urine clarity determination CLEAR NR G Urine pH measurement by test strip 7.0 5-9 Specific gravity of urine by test strip 1.020 1.016-1.022 Urine protein assay by test strip, semi-quantitative 3+ NEGATIVE Urine glucose detection by automated test strip 2+ NEGATIVE Erythrocytes detection in urine sediment by light micr oscopy 2+ NEGATIVE Urine ketones detection by automated test strip NE GATIVE NEGATIVE Urine nitrite detection by test strip NEGATIVE NEGATIVE Urine total bilirubin detection by test strip NEGA TIVE NEGATIVE Urine urobilinogen measurement by automated test strip (mass/volume) 0.2 mg/dL NORMAL Urine leukocyte esterase detection by dipstick NEG ATIVE NEGATIVE Automated urine sediment erythrocyte cou nt by microscopy (number/high power field) [HPF] NRG Automated urine sediment leukocyte count by microscopy (number/high power field) [HPF] NRG Bacteria detection in urine sediment by light microsco py NEGATIVE NRG Squamous epithelial cells detection in u rine sediment by light microscopy 0-2 NRG Crystals detection in urine sediment by light microsco py NONE NRG Casts detection in urine sediment by light microscopy NONE NRG Mucus detection in urine sediment by light microscopy NEGATIVE NRG Complete urinalysis with reflex to culture NO NRG Capillary blood glucose measurement by g lucometer (mass/volume) - 07/25/19 16:14 Capillary blood glucose measurement by glucometer (mas s/volume) 173 mg/dL 70-110 Serum or plasma troponin i.cardiac measu rement (mass/volume) - 07/25/19 16:15 Serum or plasma troponin i.cardiac measurement (mass/v olume) < ng/mL <0.028 Capillary blood glucose measurement by g lucometer (mass/volume) - 07/25/19 20:55 Capillary blood glucose measurement by glucometer (mas s/volume) 241 mg/dL 70-110 Serum or plasma troponin i.cardiac measu rement (mass/volume) - 07/25/19 21:50 Serum or plasma troponin i.cardiac measurement (mass/v olume) < ng/mL <0.028 Capillary blood glucose measurement by g lucometer (mass/volume) - 07/26/19 05:03 Capillary blood glucose measurement by glucometer (mas s/volume) 156 mg/dL 70-110 Complete blood count (CBC) with automate d white blood cell (WBC) differential - 07/26/19 05:55 Blood leukocytes automated count (number/volume) 7.7 10*3/uL 4.3-11.0 Blood erythrocytes automated count (number/volume) 5.02 10*6/uL 4.35-5.85 Venous blood hemoglobin measurement (mass/volume) 13.7 g/dL 13.3-17.7 Blood hematocrit (volume fraction) 41 % 40-54 Automated erythrocyte mean corpuscular volume 83 [ foz_us] 80-99 Automated erythrocyte mean corpuscular h emoglobin (mass per erythrocyte) 27 pg 25-34 Automated erythrocyte mean corpuscular h emoglobin concentration measurement (mass/volume) 33 g/dL 32-36 Automated erythrocyte distribution width ratio 14. 9 % 10.0- 14.5 Automated blood platelet count (count/volume) 215 10*3/uL 130-400 Automated blood platelet mean volume measurement 9.4 [foz_us] 7.4-10.4 Automated blood neutrophils/100 leukocytes 63 % 42-75 Automated blood lymphocytes/100 leukocytes 18 % 12-44 Blood monocytes/100 leukocytes 8 % 0-12 Automated blood eosinophils/100 leukocytes 11 % 0-10 Automated blood basophils/100 leukocytes 1 % 0-10 Blood neutrophils automated count (number/volume) 4.9 10*3 1.8-7.8 Blood lymphocytes automated count (number/volume) 1.4 10*3 1.0-4.0 Blood monocytes automated count (number/volume) 0. 7 10*3 0.0-1.0 Automated eosinophil count 0.8 10*3/uL 0 .0-0.3 Automated blood basophil count (count/volume) 0.0 10*3/uL 0.0-0.1 Whole blood basic metabolic panel - 04/08 05:55 Serum or plasma sodium measurement (moles/volume) 141 mmol/L 135-145 Serum or plasma potassium measurement (moles/volume) 3.8 mmol/L 3.6-5.0 Serum or plasma chloride measurement (moles/volume) 103 mmol/L 98-107 Carbon dioxide 27 mmol/L 21-32 Serum or plasma anion gap determination (moles/volume) 11 mmol/L 5-14 Serum or plasma urea nitrogen measurement (mass/volume ) 19 mg/dL 7-18 Serum or plasma creatinine measurement (mass/volume) 1.59 mg/dL 0.60-1.30 Serum or plasma urea nitrogen/creatinine mass ratio 12 NRG Serum or plasma creatinine measurement w ith calculation of estimated glomerular filtration rate 46 NRG Serum or plasma glucose measurement (mass/volume) 161 mg/dL 70-105 Serum or plasma calcium measurement (mass/volume) 9.5 mg/dL 8.5-10.1 Magnesium - 07/26/19 05:55 Magnesium 2.1 mg/dL 1.6-2.4 Lipid 1996 panel - 07/26/19 05:55 Serum or plasma triglyceride measurement (mass/volume) 208 mg/dL <150 Serum or plasma cholesterol measurement (mass/volume) 157 mg/dL < 200 Serum or plasma cholesterol in HDL measurement (mass/v olume) 28 mg/dL 40-60 Cholesterol in LDL [mass/volume] in serum or plasma by direct assay 83 mg/dL 1-129 Serum or plasma cholesterol in VLDL measurement (mass/ volume) 42 mg/dL 5-40 THYROID STIMULATING HORMONE - 07/26/19 0 5:55 THYROID STIMULATING HORMONE 2.50 u[iU]/mL 0.35-4.94 Hemoglobin A1c measurement - 07/26/19 05 :55 Blood hemoglobin A1C measurement (mass/volume) 11. 9 % 4.0- 5.6 MEAN BLOOD GLUCOSE 295 % <=126 Capillary blood glucose measurement by g lucometer (mass/volume) - 07/26/19 11:08 Capillary blood glucose measurement by glucometer (mas s/volume) 249 mg/dL 70-110 Serum or plasma lithium measurement (mol es/volume) - 07/26/19 15:50 BNP PT 205.1 pg/mL <100.0 Capillary blood glucose measurement by g lucometer (mass/volume) - 07/26/19 16:18 Capillary blood glucose measurement by glucometer (mas s/volume) 282 mg/dL 70-110 Capillary blood glucose measurement by g lucometer (mass/volume) - 07/26/19 19:57 Capillary blood glucose measurement by glucometer (mas s/volume) 264 mg/dL 70-110 Capillary blood glucose measurement by g lucometer (mass/volume) - 07/27/19 05:44 Capillary blood glucose measurement by glucometer (mas s/volume) 167 mg/dL 70-110 Whole blood basic metabolic panel - 05/09 06:14 Serum or plasma sodium measurement (moles/volume) 139 mmol/L 135-145 Serum or plasma potassium measurement (moles/volume) 4.0 mmol/L 3.6-5.0 Serum or plasma chloride measurement (moles/volume) 105 mmol/L 98-107 Carbon dioxide 25 mmol/L 21-32 Serum or plasma anion gap determination (moles/volume) 9 mmol/L 5-14 Serum or plasma urea nitrogen measurement (mass/volume ) 26 mg/dL 7-18 Serum or plasma creatinine measurement (mass/volume) 1.82 mg/dL 0.60-1.30 Serum or plasma urea nitrogen/creatinine mass ratio 14 NRG Serum or plasma creatinine measurement w ith calculation of estimated glomerular filtration rate 39 NRG Serum or plasma glucose measurement (mass/volume) 175 mg/dL 70-105 Serum or plasma calcium measurement (mass/volume) 9.5 mg/dL 8.5-10.1 Magnesium - 07/27/19 06:14 Magnesium 2.1 mg/dL 1.6-2.4 Complete blood count (CBC) with automate d white blood cell (WBC) differential - 07/30/19 06:00 Blood leukocytes automated count (number/volume) 8.2 10*3/uL 4.3-11.0 Blood erythrocytes automated count (number/volume) 5.07 10*6/uL 4.35-5.85 Venous blood hemoglobin measurement (mass/volume) 14.0 g/dL 13.3-17.7 Blood hematocrit (volume fraction) 43 % 40-54 Automated erythrocyte mean corpuscular volume 85 [ foz_us] 80-99 Automated erythrocyte mean corpuscular h emoglobin (mass per erythrocyte) 28 pg 25-34 Automated erythrocyte mean corpuscular h emoglobin concentration measurement (mass/volume) 33 g/dL 32-36 Automated erythrocyte distribution width ratio 14. 2 % 10.0- 14.5 Automated blood platelet count (count/volume) 226 10*3/uL 130-400 Automated blood platelet mean volume measurement 9.6 [foz_us] 7.4-10.4 Automated blood neutrophils/100 leukocytes 62 % 42-75 Automated blood lymphocytes/100 leukocytes 17 % 12-44 Blood monocytes/100 leukocytes 8 % 0-12 Automated blood eosinophils/100 leukocytes 11 % 0-10 Automated blood basophils/100 leukocytes 1 % 0-10 Blood neutrophils automated count (number/volume) 5.1 10*3 1.8-7.8 Blood lymphocytes automated count (number/volume) 1.4 10*3 1.0-4.0 Blood monocytes automated count (number/volume) 0. 7 10*3 0.0-1.0 Automated eosinophil count 0.9 10*3/uL 0 .0-0.3 Automated blood basophil count (count/volume) 0.1 10*3/uL 0.0-0.1 PT panel in platelet poor plasma by coag ulation assay - 07/30/19 06:00 Prothrombin time (PT) in platelet poor plasma by coagu lation assay 12.6 s 12.2-14.7 INR in platelet poor plasma or blood by coagulation as say 0.9 0.8-1.4 Activated partial thromboplastin time (a PTT) in platelet poor plasma bycoagulation assay - 07/30/19 06:00 Activated partial thromboplastin time (a PTT) in platelet poor plasma bycoagulation assay 28 s 24-35 Comprehensive metabolic panel - 07/30/19 06:00 Serum or plasma sodium measurement (moles/volume) 138 mmol/L 135-145 Serum or plasma potassium measurement (moles/volume) 4.4 mmol/L 3.6-5.0 Serum or plasma chloride measurement (moles/volume) 100 mmol/L 98-107 Carbon dioxide 23 mmol/L 21-32 Serum or plasma anion gap determination (moles/volume) 15 mmol/L 5-14 Serum or plasma urea nitrogen measurement (mass/volume ) 26 mg/dL 7-18 Serum or plasma creatinine measurement (mass/volume) 1.64 mg/dL 0.60-1.30 Serum or plasma urea nitrogen/creatinine mass ratio 16 NRG Serum or plasma creatinine measurement w ith calculation of estimated glomerular filtration rate 44 NRG Serum or plasma glucose measurement (mass/volume) 347 mg/dL 70-105 Serum or plasma calcium measurement (mass/volume) 9.4 mg/dL 8.5-10.1 Serum or plasma total bilirubin measurement (mass/volu me) 0.5 mg/dL 0.1-1.0 Serum or plasma alkaline phosphatase federico surement (enzymatic activity/volume) 107 U/L 40-136 Serum or plasma aspartate aminotransfera se measurement (enzymatic activity/volume) 13 U/L 5-34 Serum or plasma alanine aminotransferase measurement (enzymatic activity/volume) 12 U/L 0-55 Serum or plasma protein measurement (mass/volume) 7.0 g/dL 6.4-8.2 Serum or plasma albumin measurement (mass/volume) 3.5 g/dL 3.2-4.5 CALCIUM CORRECTED 9.8 mg/dL 8.5-10.1 Magnesium - 07/30/19 06:00 Magnesium 2.2 mg/dL 1.6-2.4 Serum or plasma troponin i.cardiac measu rement (mass/volume) - 07/30/19 06:00 Serum or plasma troponin i.cardiac measurement (mass/v olume) < ng/mL <0.30 PROBNP FS - 07/30/19 06:00 PROBNP FS 1253.0 pg/mL <75.0 Serum or plasma troponin i.cardiac measu rement (mass/volume) - 07/31/19 13:10 Serum or plasma troponin i.cardiac measurement (mass/v olume) < ng/mL <0.30 PROBNP FS - 07/31/19 13:10 PROBNP FS 892.8 pg/mL <75.0 Comprehensive metabolic panel - 07/31/19 13:10 Serum or plasma sodium measurement (moles/volume) 139 mmol/L 135-145 Serum or plasma potassium measurement (moles/volume) 4.0 mmol/L 3.6-5.0 Serum or plasma chloride measurement (moles/volume) 102 mmol/L 98-107 Carbon dioxide 25 mmol/L 21-32 Serum or plasma anion gap determination (moles/volume) 12 mmol/L 5-14 Serum or plasma urea nitrogen measurement (mass/volume ) 25 mg/dL 7-18 Serum or plasma creatinine measurement (mass/volume) 1.67 mg/dL 0.60-1.30 Serum or plasma urea nitrogen/creatinine mass ratio 15 NRG Serum or plasma creatinine measurement w ith calculation of estimated glomerular filtration rate 43 NRG Serum or plasma glucose measurement (mass/volume) 208 mg/dL 70-105 Serum or plasma calcium measurement (mass/volume) 9.1 mg/dL 8.5-10.1 Serum or plasma total bilirubin measurement (mass/volu me) 0.5 mg/dL 0.1-1.0 Serum or plasma alkaline phosphatase federico surement (enzymatic activity/volume) 90 U/L 40-136 Serum or plasma aspartate aminotransfera se measurement (enzymatic activity/volume) 12 U/L 5-34 Serum or plasma alanine aminotransferase measurement (enzymatic activity/volume) 11 U/L 0-55 Serum or plasma protein measurement (mass/volume) 6.4 g/dL 6.4-8.2 Serum or plasma albumin measurement (mass/volume) 3.4 g/dL 3.2-4.5 CALCIUM CORRECTED 9.6 mg/dL 8.5-10.1 Magnesium - 07/31/19 13:10 Magnesium 2.1 mg/dL 1.6-2.4 Complete blood count (CBC) with automate d white blood cell (WBC) differential - 07/31/19 13:10 Blood leukocytes automated count (number/volume) 7.8 10*3/uL 4.3-11.0 Blood erythrocytes automated count (number/volume) 4.59 10*6/uL 4.35-5.85 Venous blood hemoglobin measurement (mass/volume) 12.6 g/dL 13.3-17.7 Blood hematocrit (volume fraction) 39 % 40-54 Automated erythrocyte mean corpuscular volume 85 [ foz_us] 80-99 Automated erythrocyte mean corpuscular h emoglobin (mass per erythrocyte) 27 pg 25-34 Automated erythrocyte mean corpuscular h emoglobin concentration measurement (mass/volume) 33 g/dL 32-36 Automated erythrocyte distribution width ratio 14. 3 % 10.0- 14.5 Automated blood platelet count (count/volume) 226 10*3/uL 130-400 Automated blood platelet mean volume measurement 10.1 [foz_us] 7.4-10.4 Automated blood neutrophils/100 leukocytes 60 % 42-75 Automated blood lymphocytes/100 leukocytes 19 % 12-44 Blood monocytes/100 leukocytes 8 % 0-12 Automated blood eosinophils/100 leukocytes 13 % 0-10 Automated blood basophils/100 leukocytes 0 % 0-10 Blood neutrophils automated count (number/volume) 4.7 10*3 1.8-7.8 Blood lymphocytes automated count (number/volume) 1.5 10*3 1.0-4.0 Blood monocytes automated count (number/volume) 0. 6 10*3 0.0-1.0 Automated eosinophil count 1.0 10*3/uL 0 .0-0.3 Automated blood basophil count (count/volume) 0.0 10*3/uL 0.0-0.1 PT panel in platelet poor plasma by coag ulation assay - 07/31/19 13:10 Prothrombin time (PT) in platelet poor plasma by coagu lation assay 12.4 s 12.2-14.7 INR in platelet poor plasma or blood by coagulation as say 0.9 0.8-1.4 Activated partial thromboplastin time (a PTT) in platelet poor plasma bycoagulation assay - 07/31/19 13:10 Activated partial thromboplastin time (a PTT) in platelet poor plasma bycoagulation assay 29 s 24-35 Manual absolute plasma cell count - 07/22 13:10 Blood monocytes/100 leukocytes 7 % NRG Manual blood segmented neutrophils/100 leukocytes 52 % NRG Blood band neutrophils/100 leukocytes 4 % NRG Manual blood lymphocytes/100 leukocytes 19 % NRG Manual eosinophils/100 leukocytes in nose 14 % NRG Manual blood basophils/100 leukocytes 1 % NRG Manual blood lymphocytes variant/100 leukocytes 3 % NRG Blood erythrocyte morphology finding identification NORMAL NRG Blood CBC with ordered manual differenti al panel - 11/27/19 10:13 Blood leukocytes automated count (number/volume) 6.5 10*3/uL 4.3-11.0 Blood erythrocytes automated count (number/volume) 4.22 10*6/uL 4.35-5.85 Venous blood hemoglobin measurement (mass/volume) 11.5 g/dL 13.3-17.7 Blood hematocrit (volume fraction) 37 % 40-54 Automated erythrocyte mean corpuscular volume 87 [ foz_us] 80-99 Automated erythrocyte mean corpuscular h emoglobin (mass per erythrocyte) 27 pg 25-34 Automated erythrocyte mean corpuscular h emoglobin concentration measurement (mass/volume) 32 g/dL 32-36 Automated erythrocyte distribution width ratio 14. 8 % 10.0- 14.5 Automated blood platelet count (count/volume) 177 10*3/uL 130-400 Automated blood platelet mean volume measurement 10.2 [foz_us] 7.4-10.4 Automated blood neutrophils/100 leukocytes 67 % 42-75 Automated blood lymphocytes/100 leukocytes 15 % 12-44 Blood monocytes/100 leukocytes 4 % NRG Automated blood eosinophils/100 leukocytes 11 % 0-10 Automated blood basophils/100 leukocytes 0 % 0-10 Blood neutrophils automated count (number/volume) 4.4 10*3 1.8-7.8 Blood lymphocytes automated count (number/volume) 1.0 10*3 1.0-4.0 Blood monocytes automated count (number/volume) 0. 4 10*3 0.0-1.0 Automated eosinophil count 0.7 10*3/uL 0 .0-0.3 Automated blood basophil count (count/volume) 0.0 10*3/uL 0.0-0.1 Manual blood segmented neutrophils/100 leukocytes 58 % NRG Blood band neutrophils/100 leukocytes 4 % NRG Manual blood lymphocytes/100 leukocytes 23 % NRG Manual eosinophils/100 leukocytes in nose 10 % NRG Manual blood basophils/100 leukocytes 1 % NRG Blood erythrocyte morphology finding identification NORMAL NRG PT panel in platelet poor plasma by coag ulation assay - 11/27/19 10:13 Prothrombin time (PT) in platelet poor plasma by coagu lation assay 13.1 s 12.2-14.7 INR in platelet poor plasma or blood by coagulation as say 1.0 0.8-1.4 Activated partial thromboplastin time (a PTT) in platelet poor plasma bycoagulation assay - 11/27/19 10:13 Activated partial thromboplastin time (a PTT) in platelet poor plasma bycoagulation assay 29 s 24-35 Comprehensive metabolic panel - 11/27/19 10:13 Serum or plasma sodium measurement (moles/volume) 137 mmol/L 135-145 Serum or plasma potassium measurement (moles/volume) 3.9 mmol/L 3.6-5.0 Serum or plasma chloride measurement (moles/volume) 101 mmol/L 98-107 Carbon dioxide 26 mmol/L 21-32 Serum or plasma anion gap determination (moles/volume) 10 mmol/L 5-14 Serum or plasma urea nitrogen measurement (mass/volume ) 21 mg/dL 7-18 Serum or plasma creatinine measurement (mass/volume) 1.72 mg/dL 0.60-1.30 Serum or plasma urea nitrogen/creatinine mass ratio 12 NRG Serum or plasma creatinine measurement w ith calculation of estimated glomerular filtration rate 41 NRG Serum or plasma glucose measurement (mass/volume) 353 mg/dL 70-105 Serum or plasma calcium measurement (mass/volume) 9.3 mg/dL 8.5-10.1 Serum or plasma total bilirubin measurement (mass/volu me) 0.5 mg/dL 0.1-1.0 Serum or plasma alkaline phosphatase federico surement (enzymatic activity/volume) 122 U/L 40-136 Serum or plasma aspartate aminotransfera se measurement (enzymatic activity/volume) 11 U/L 5-34 Serum or plasma alanine aminotransferase measurement (enzymatic activity/volume) 8 U/L 0-55 Serum or plasma protein measurement (mass/volume) 6.8 g/dL 6.4-8.2 Serum or plasma albumin measurement (mass/volume) 3.2 g/dL 3.2-4.5 CALCIUM CORRECTED 9.9 mg/dL 8.5-10.1 PROBNP FS - 11/27/19 10:13 PROBNP FS 1127.0 pg/mL <75.0 Complete urinalysis with reflex to cultu re - 11/27/19 10:23 Urine color determination YELLOW NRG Urine clarity determination CLEAR NR G Urine pH measurement by test strip 6.0 5-9 Specific gravity of urine by test strip 1.020 1.016-1.022 Urine protein assay by test strip, semi-quantitative 2+ NEGATIVE Urine glucose detection by automated test strip 3+ NEGATIVE Erythrocytes detection in urine sediment by light micr oscopy 1+ NEGATIVE Urine ketones detection by automated test strip NE GATIVE NEGATIVE Urine nitrite detection by test strip NEGATIVE NEGATIVE Urine total bilirubin detection by test strip NEGA TIVE NEGATIVE Urine urobilinogen measurement by automated test strip (mass/volume) 0.2 mg/dL < = 1.0 Urine leukocyte esterase detection by dipstick NEG ATIVE NEGATIVE Automated urine sediment erythrocyte cou nt by microscopy (number/high power field) [HPF] NRG Automated urine sediment leukocyte count by microscopy (number/high power field) NONE NRG Bacteria detection in urine sediment by light microsco py NONE NRG Squamous epithelial cells detection in u rine sediment by light microscopy RARE NRG Crystals detection in urine sediment by light microsco py NONE NRG Casts detection in urine sediment by light microscopy NONE NRG Mucus detection in urine sediment by light microscopy NEGATIVE NRG Complete urinalysis with reflex to culture NO NRG Automated blood complete blood count (he mogram) panel - 12/06/19 08:52 Blood leukocytes automated count (number/volume) 6.6 10*3/uL 4.3-11.0 Blood erythrocytes automated count (number/volume) 4.42 10*6/uL 4.35-5.85 Venous blood hemoglobin measurement (mass/volume) 11.9 g/dL 13.3-17.7 Blood hematocrit (volume fraction) 37 % 40-54 Automated erythrocyte mean corpuscular volume 83 [ foz_us] 80-99 Automated erythrocyte mean corpuscular h emoglobin (mass per erythrocyte) 27 pg 25-34 Automated erythrocyte mean corpuscular h emoglobin concentration measurement (mass/volume) 32 g/dL 32-36 Automated erythrocyte distribution width ratio 14. 9 % 10.0- 14.5 Automated blood platelet count (count/volume) 224 10*3/uL 130-400 Automated blood platelet mean volume measurement 9.4 [foz_us] 7.4-10.4 PT panel in platelet poor plasma by coag ulation assay - 12/06/19 08:52 Prothrombin time (PT) in platelet poor plasma by coagu lation assay 12.9 s 12.2-14.7 INR in platelet poor plasma or blood by coagulation as say 0.9 0.8-1.4 Activated partial thromboplastin time (a PTT) in platelet poor plasma bycoagulation assay - 12/06/19 08:52 Activated partial thromboplastin time (a PTT) in platelet poor plasma bycoagulation assay 31 s 24-35 Comprehensive metabolic panel - 12/06/19 08:52 Serum or plasma sodium measurement (moles/volume) 138 mmol/L 135-145 Serum or plasma potassium measurement (moles/volume) 3.6 mmol/L 3.6-5.0 Serum or plasma chloride measurement (moles/volume) 100 mmol/L 98-107 Carbon dioxide 27 mmol/L 21-32 Serum or plasma anion gap determination (moles/volume) 11 mmol/L 5-14 Serum or plasma urea nitrogen measurement (mass/volume ) 34 mg/dL 7-18 Serum or plasma creatinine measurement (mass/volume) 2.36 mg/dL 0.60-1.30 Serum or plasma urea nitrogen/creatinine mass ratio 14 NRG Serum or plasma creatinine measurement w ith calculation of estimated glomerular filtration rate 29 NRG Serum or plasma glucose measurement (mass/volume) 346 mg/dL 70-105 Serum or plasma calcium measurement (mass/volume) 8.9 mg/dL 8.5-10.1 Serum or plasma total bilirubin measurement (mass/volu me) 0.5 mg/dL 0.1-1.0 Serum or plasma alkaline phosphatase federico surement (enzymatic activity/volume) 108 U/L 40-136 Serum or plasma aspartate aminotransfera se measurement (enzymatic activity/volume) 11 U/L 5-34 Serum or plasma alanine aminotransferase measurement (enzymatic activity/volume) 11 U/L 0-55 Serum or plasma protein measurement (mass/volume) 6.6 g/dL 6.4-8.2 Serum or plasma albumin measurement (mass/volume) 3.3 g/dL 3.2-4.5 CALCIUM CORRECTED 9.5 mg/dL 8.5-10.1 Lipid 1996 panel - 12/06/19 08:52 Serum or plasma triglyceride measurement (mass/volume) 244 mg/dL <150 Serum or plasma cholesterol measurement (mass/volume) 124 mg/dL < 200 Serum or plasma cholesterol in HDL measurement (mass/v olume) 27 mg/dL 40-60 Cholesterol in LDL [mass/volume] in serum or plasma by direct assay 57 mg/dL 1-129 Serum or plasma cholesterol in VLDL measurement (mass/ volume) 49 mg/dL 5-40 Methicillin resistant Staphylococcus aur eus (MRSA) screening culture - 12/06/19 09:00 Methicillin resistant Staphylococcus aureus (MRSA) scr eening culture NEG NRG Capillary blood glucose measurement by g lucometer (mass/volume) - 12/06/19 20:51 Capillary blood glucose measurement by glucometer (mas s/volume) 273 mg/dL 70-110 Automated blood complete blood count (he mogram) panel - 12/07/19 03:20 Blood leukocytes automated count (number/volume) 7.4 10*3/uL 4.3-11.0 Blood erythrocytes automated count (number/volume) 4.21 10*6/uL 4.35-5.85 Venous blood hemoglobin measurement (mass/volume) 11.2 g/dL 13.3-17.7 Blood hematocrit (volume fraction) 35 % 40-54 Automated erythrocyte mean corpuscular volume 83 [ foz_us] 80-99 Automated erythrocyte mean corpuscular h emoglobin (mass per erythrocyte) 27 pg 25-34 Automated erythrocyte mean corpuscular h emoglobin concentration measurement (mass/volume) 32 g/dL 32-36 Automated erythrocyte distribution width ratio 14. 9 % 10.0- 14.5 Automated blood platelet count (count/volume) 239 10*3/uL 130-400 Automated blood platelet mean volume measurement 9.6 [foz_us] 7.4-10.4 Whole blood basic metabolic panel - 11/21 06/09 03:20 Serum or plasma sodium measurement (moles/volume) 138 mmol/L 135-145 Serum or plasma potassium measurement (moles/volume) 3.3 mmol/L 3.6-5.0 Serum or plasma chloride measurement (moles/volume) 103 mmol/L 98-107 Carbon dioxide 26 mmol/L 21-32 Serum or plasma anion gap determination (moles/volume) 9 mmol/L 5-14 Serum or plasma urea nitrogen measurement (mass/volume ) 26 mg/dL 7-18 Serum or plasma creatinine measurement (mass/volume) 1.78 mg/dL 0.60-1.30 Serum or plasma urea nitrogen/creatinine mass ratio 15 NRG Serum or plasma creatinine measurement w ith calculation of estimated glomerular filtration rate 40 NRG Serum or plasma glucose measurement (mass/volume) 121 mg/dL 70-105 Serum or plasma calcium measurement (mass/volume) 9.1 mg/dL 8.5-10.1 Capillary blood glucose measurement by g lucometer (mass/volume) - 12/07/19 11:54 Capillary blood glucose measurement by glucometer (mas s/volume) 175 mg/dL 70-110 Complete blood count (CBC) with automate d white blood cell (WBC) differential - 12/23/19 03:30 Blood leukocytes automated count (number/volume) 11.0 10*3/uL 4.3-11.0 Blood erythrocytes automated count (number/volume) 4.63 10*6/uL 4.35-5.85 Venous blood hemoglobin measurement (mass/volume) 12.6 g/dL 13.3-17.7 Blood hematocrit (volume fraction) 39 % 40-54 Automated erythrocyte mean corpuscular volume 83 [ foz_us] 80-99 Automated erythrocyte mean corpuscular h emoglobin (mass per erythrocyte) 27 pg 25-34 Automated erythrocyte mean corpuscular h emoglobin concentration measurement (mass/volume) 33 g/dL 32-36 Automated erythrocyte distribution width ratio 14. 9 % 10.0- 14.5 Automated blood platelet count (count/volume) 265 10*3/uL 130-400 Automated blood platelet mean volume measurement 9.2 [foz_us] 7.4-10.4 Automated blood neutrophils/100 leukocytes 78 % 42-75 Automated blood lymphocytes/100 leukocytes 10 % 12-44 Blood monocytes/100 leukocytes 7 % 0-12 Automated blood eosinophils/100 leukocytes 5 % 0-10 Automated blood basophils/100 leukocytes 1 % 0-10 Blood neutrophils automated count (number/volume) 8.6 10*3 1.8-7.8 Blood lymphocytes automated count (number/volume) 1.1 10*3 1.0-4.0 Blood monocytes automated count (number/volume) 0. 7 10*3 0.0-1.0 Automated eosinophil count 0.5 10*3/uL 0 .0-0.3 Automated blood basophil count (count/volume) 0.1 10*3/uL 0.0-0.1 Comprehensive metabolic panel - 12/23/19 03:30 Serum or plasma sodium measurement (moles/volume) 133 mmol/L 135-145 Serum or plasma potassium measurement (moles/volume) 4.1 mmol/L 3.6-5.0 Serum or plasma chloride measurement (moles/volume) 92 mmol/L 98-107 Carbon dioxide 27 mmol/L 21-32 Serum or plasma anion gap determination (moles/volume) 14 mmol/L 5-14 Serum or plasma urea nitrogen measurement (mass/volume ) 22 mg/dL 7-18 Serum or plasma creatinine measurement (mass/volume) 1.95 mg/dL 0.60-1.30 Serum or plasma urea nitrogen/creatinine mass ratio 11 NRG Serum or plasma creatinine measurement w ith calculation of estimated glomerular filtration rate 36 NRG Serum or plasma glucose measurement (mass/volume) 298 mg/dL 70-105 Serum or plasma calcium measurement (mass/volume) 10.0 mg/dL 8.5-10.1 Serum or plasma total bilirubin measurement (mass/volu me) 0.9 mg/dL 0.1-1.0 Serum or plasma alkaline phosphatase federico surement (enzymatic activity/volume) 116 U/L 40-136 Serum or plasma aspartate aminotransfera se measurement (enzymatic activity/volume) 10 U/L 5-34 Serum or plasma alanine aminotransferase measurement (enzymatic activity/volume) 11 U/L 0-55 Serum or plasma protein measurement (mass/volume) 7.2 g/dL 6.4-8.2 Serum or plasma albumin measurement (mass/volume) 3.5 g/dL 3.2-4.5 CALCIUM CORRECTED 10.4 mg/dL 8.5-10.1 Lipase - 12/23/19 03:30 Lipase 27 U/L 8-78 Complete urinalysis with reflex to cultu re - 12/23/19 05:30 Urine color determination YELLOW NRG Urine clarity determination CLEAR NR G Urine pH measurement by test strip 7.0 5-9 Specific gravity of urine by test strip 1.020 1.016-1.022 Urine protein assay by test strip, semi-quantitative 3+ NEGATIVE Urine glucose detection by automated test strip 3+ NEGATIVE Erythrocytes detection in urine sediment by light micr oscopy 2+ NEGATIVE Urine ketones detection by automated test strip NE GATIVE NEGATIVE Urine nitrite detection by test strip NEGATIVE NEGATIVE Urine total bilirubin detection by test strip NEGA TIVE NEGATIVE Urine urobilinogen measurement by automated test strip (mass/volume) 0.2 mg/dL < = 1.0 Urine leukocyte esterase detection by dipstick NEG ATIVE NEGATIVE Automated urine sediment erythrocyte cou nt by microscopy (number/high power field) [HPF] NRG Automated urine sediment leukocyte count by microscopy (number/high power field) [HPF] NRG Bacteria detection in urine sediment by light microsco py FEW NRG Squamous epithelial cells detection in u rine sediment by light microscopy NONE NRG Crystals detection in urine sediment by light microsco py NONE NRG Casts detection in urine sediment by light microscopy PRESENT NRG Mucus detection in urine sediment by light microscopy MODERATE NRG Complete urinalysis with reflex to culture YES NRG Hyaline casts detection in urine sediment by light guille roscopy 2-5 NRG Bacterial urine culture - 12/23/19 05:30 Bacterial urine culture NG NRG Bacterial blood culture - 12/23/19 12:04 Bacterial blood culture NG NRG Capillary blood glucose measurement by g lucometer (mass/volume) - 12/23/19 12:13 Capillary blood glucose measurement by glucometer (mas s/volume) 222 mg/dL 70-110 Gram stain microscopy - 12/23/19 13:22 Gram stain microscopy NO BACTERIA SEEN NRG Bacteria identification in wound by cult ure - 12/23/19 13:22 Bacteria identification in wound by culture NG NRG Capillary blood glucose measurement by g lucometer (mass/volume) - 12/23/19 15:54 Capillary blood glucose measurement by glucometer (mas s/volume) 230 mg/dL 70-110 Capillary blood glucose measurement by g lucometer (mass/volume) - 12/23/19 21:09 Capillary blood glucose measurement by glucometer (mas s/volume) 183 mg/dL 70-110 Capillary blood glucose measurement by g lucometer (mass/volume) - 12/24/19 01:48 Capillary blood glucose measurement by glucometer (mas s/volume) 174 mg/dL 70-110 Capillary blood glucose measurement by g lucometer (mass/volume) - 12/24/19 05:26 Capillary blood glucose measurement by glucometer (mas s/volume) 180 mg/dL 70-110 Automated blood complete blood count (he mogram) panel - 12/24/19 06:05 Blood leukocytes automated count (number/volume) 6.8 10*3/uL 4.3-11.0 Blood erythrocytes automated count (number/volume) 4.53 10*6/uL 4.35-5.85 Venous blood hemoglobin measurement (mass/volume) 12.3 g/dL 13.3-17.7 Blood hematocrit (volume fraction) 38 % 40-54 Automated erythrocyte mean corpuscular volume 84 [ foz_us] 80-99 Automated erythrocyte mean corpuscular h emoglobin (mass per erythrocyte) 27 pg 25-34 Automated erythrocyte mean corpuscular h emoglobin concentration measurement (mass/volume) 33 g/dL 32-36 Automated erythrocyte distribution width ratio 14. 9 % 10.0- 14.5 Automated blood platelet count (count/volume) 212 10*3/uL 130-400 Automated blood platelet mean volume measurement 9.6 [foz_us] 7.4-10.4 Whole blood basic metabolic panel - 02/07 06:05 Serum or plasma sodium measurement (moles/volume) 139 mmol/L 135-145 Serum or plasma potassium measurement (moles/volume) 3.8 mmol/L 3.6-5.0 Serum or plasma chloride measurement (moles/volume) 106 mmol/L 98-107 Carbon dioxide 23 mmol/L 21-32 Serum or plasma anion gap determination (moles/volume) 10 mmol/L 5-14 Serum or plasma urea nitrogen measurement (mass/volume ) 14 mg/dL 7-18 Serum or plasma creatinine measurement (mass/volume) 1.54 mg/dL 0.60-1.30 Serum or plasma urea nitrogen/creatinine mass ratio 9 NRG Serum or plasma creatinine measurement w ith calculation of estimated glomerular filtration rate 47 NRG Serum or plasma glucose measurement (mass/volume) 194 mg/dL 70-105 Serum or plasma calcium measurement (mass/volume) 9.2 mg/dL 8.5-10.1 Capillary blood glucose measurement by g lucometer (mass/volume) - 12/24/19 11:26 Capillary blood glucose measurement by glucometer (mas s/volume) 211 mg/dL 70-110 Capillary blood glucose measurement by g lucometer (mass/volume) - 12/24/19 15:53 Capillary blood glucose measurement by glucometer (mas s/volume) 164 mg/dL 70-110 Capillary blood glucose measurement by g lucometer (mass/volume) - 12/24/19 20:24 Capillary blood glucose measurement by glucometer (mas s/volume) 163 mg/dL 70-110 Capillary blood glucose measurement by g lucometer (mass/volume) - 12/25/19 06:00 Capillary blood glucose measurement by glucometer (mas s/volume) 133 mg/dL 70-110 Capillary blood glucose measurement by g lucometer (mass/volume) - 12/25/19 11:19 Capillary blood glucose measurement by glucometer (mas s/volume) 201 mg/dL 70-110 Urinalysis - 03/14/20 18:00 Icotest N/A Negative Urine Volume Urine Volume Sufficient (10mL) Urine-Appearance Clear Clear Urine-Bacteria Negative Urine-Bilirubin Negative Negative Urine-Blood 1+ Negative Urine-Color Yellow Colorless-[place] ow Urine-Epithelial Cells 0-5/HPF Urine-Glucose Trace Negative Urine-Ketones Negative Negative Urine-Leukocytes Negative Negative Urine-Nitrite Negative Negative Urine-Other Urine Saved if Culture Need ed (48hrs from time of collection) Urine-pH 7.0 5-8.5 Urine-Protein 3+ Negative Urine-RBC 2-5/HPF Urine-Specific [place] 1.020 1.000-1 .030 Urine-WBC 0-2/HPF Urobilinogen 0.2 0.2-1.0 COVID19 - 03/14/20 18:05 COVID19 Sent to [facility], Results have been scanned Capillary blood glucose measurement by g lucometer (mass/volume) - 03/14/20 21:30 Capillary blood glucose measurement by glucometer (mas s/volume) 170 mg/dL 70-110 Automated blood complete blood count (he mogram) panel - 03/15/20 04:58 Blood leukocytes automated count (number/volume) 8.9 10*3/uL 4.3-11.0 Blood erythrocytes automated count (number/volume) 4.00 10*6/uL 4.35-5.85 Venous blood hemoglobin measurement (mass/volume) 10.9 g/dL 13.3-17.7 Blood hematocrit (volume fraction) 34 % 40-54 Automated erythrocyte mean corpuscular volume 84 [ foz_us] 80-99 Automated erythrocyte mean corpuscular h emoglobin (mass per erythrocyte) 27 pg 25-34 Automated erythrocyte mean corpuscular h emoglobin concentration measurement (mass/volume) 32 g/dL 32-36 Automated erythrocyte distribution width ratio 14. 3 % 10.0- 14.5 Automated blood platelet count (count/volume) 201 10*3/uL 130-400 Automated blood platelet mean volume measurement 10.6 [foz_us] 7.4-10.4 Whole blood basic metabolic panel - 02/20 04/09 04:58 Serum or plasma sodium measurement (moles/volume) 138 mmol/L 135-145 Serum or plasma potassium measurement (moles/volume) 4.2 mmol/L 3.6-5.0 Serum or plasma chloride measurement (moles/volume) 98 mmol/L 98-107 Carbon dioxide 27 mmol/L 21-32 Serum or plasma anion gap determination (moles/volume) 13 mmol/L 5-14 Serum or plasma urea nitrogen measurement (mass/volume ) 47 mg/dL 7-18 Serum or plasma creatinine measurement (mass/volume) 2.82 mg/dL 0.60-1.30 Serum or plasma urea nitrogen/creatinine mass ratio 17 NRG Serum or plasma creatinine measurement w ith calculation of estimated glomerular filtration rate 23 NRG Serum or plasma glucose measurement (mass/volume) 223 mg/dL 70-105 Serum or plasma calcium measurement (mass/volume) 9.6 mg/dL 8.5-10.1 Capillary blood glucose measurement by g lucometer (mass/volume) - 03/15/20 12:39 Capillary blood glucose measurement by glucometer (mas s/volume) 254 mg/dL 70-110 Capillary blood glucose measurement by g lucometer (mass/volume) - 03/15/20 17:44 Capillary blood glucose measurement by glucometer (mas s/volume) 271 mg/dL 70-110 Capillary blood glucose measurement by g lucometer (mass/volume) - 03/15/20 20:59 Capillary blood glucose measurement by glucometer (mas s/volume) 269 mg/dL 70-110 Automated blood complete blood count (he mogram) panel - 03/16/20 05:27 Blood leukocytes automated count (number/volume) 7.8 10*3/uL 4.3-11.0 Blood erythrocytes automated count (number/volume) 3.88 10*6/uL 4.35-5.85 Venous blood hemoglobin measurement (mass/volume) 10.6 g/dL 13.3-17.7 Blood hematocrit (volume fraction) 33 % 40-54 Automated erythrocyte mean corpuscular volume 84 [ foz_us] 80-99 Automated erythrocyte mean corpuscular h emoglobin (mass per erythrocyte) 27 pg 25-34 Automated erythrocyte mean corpuscular h emoglobin concentration measurement (mass/volume) 33 g/dL 32-36 Automated erythrocyte distribution width ratio 14. 4 % 10.0- 14.5 Automated blood platelet count (count/volume) 198 10*3/uL 130-400 Automated blood platelet mean volume measurement 10.1 [foz_us] 7.4-10.4 Whole blood basic metabolic panel - 02/20 05/10 05:27 Serum or plasma sodium measurement (moles/volume) 139 mmol/L 135-145 Serum or plasma potassium measurement (moles/volume) 4.2 mmol/L 3.6-5.0 Serum or plasma chloride measurement (moles/volume) 103 mmol/L 98-107 Carbon dioxide 24 mmol/L 21-32 Serum or plasma anion gap determination (moles/volume) 12 mmol/L 5-14 Serum or plasma urea nitrogen measurement (mass/volume ) 39 mg/dL 7-18 Serum or plasma creatinine measurement (mass/volume) 2.14 mg/dL 0.60-1.30 Serum or plasma urea nitrogen/creatinine mass ratio 18 NRG Serum or plasma creatinine measurement w ith calculation of estimated glomerular filtration rate 32 NRG Serum or plasma glucose measurement (mass/volume) 151 mg/dL 70-105 Serum or plasma calcium measurement (mass/volume) 9.2 mg/dL 8.5-10.1 Capillary blood glucose measurement by g lucometer (mass/volume) - 03/16/20 05:28 Capillary blood glucose measurement by glucometer (mas s/volume) 153 mg/dL 70-110 Capillary blood glucose measurement by g lucometer (mass/volume) - 03/16/20 12:01 Capillary blood glucose measurement by glucometer (mas s/volume) 287 mg/dL 70-110 Capillary blood glucose measurement by g lucometer (mass/volume) - 03/16/20 17:01 Capillary blood glucose measurement by glucometer (mas s/volume) 312 mg/dL 70-110 Capillary blood glucose measurement by g lucometer (mass/volume) - 03/16/20 21:00 Capillary blood glucose measurement by glucometer (mas s/volume) 275 mg/dL 70-110 Automated blood complete blood count (he mogram) panel - 03/17/20 05:00 Blood leukocytes automated count (number/volume) 6.8 10*3/uL 4.3-11.0 Blood erythrocytes automated count (number/volume) 3.75 10*6/uL 4.35-5.85 Venous blood hemoglobin measurement (mass/volume) 10.4 g/dL 13.3-17.7 Blood hematocrit (volume fraction) 32 % 40-54 Automated erythrocyte mean corpuscular volume 85 [ foz_us] 80-99 Automated erythrocyte mean corpuscular h emoglobin (mass per erythrocyte) 28 pg 25-34 Automated erythrocyte mean corpuscular h emoglobin concentration measurement (mass/volume) 33 g/dL 32-36 Automated erythrocyte distribution width ratio 14. 1 % 10.0- 14.5 Automated blood platelet count (count/volume) 178 10*3/uL 130-400 Automated blood platelet mean volume measurement 10.3 [foz_us] 7.4-10.4 Whole blood basic metabolic panel - 02/20 06/09 05:00 Serum or plasma sodium measurement (moles/volume) 140 mmol/L 135-145 Serum or plasma potassium measurement (moles/volume) 4.3 mmol/L 3.6-5.0 Serum or plasma chloride measurement (moles/volume) 105 mmol/L 98-107 Carbon dioxide 23 mmol/L 21-32 Serum or plasma anion gap determination (moles/volume) 12 mmol/L 5-14 Serum or plasma urea nitrogen measurement (mass/volume ) 35 mg/dL 7-18 Serum or plasma creatinine measurement (mass/volume) 2.19 mg/dL 0.60-1.30 Serum or plasma urea nitrogen/creatinine mass ratio 16 NRG Serum or plasma creatinine measurement w ith calculation of estimated glomerular filtration rate 31 NRG Serum or plasma glucose measurement (mass/volume) 202 mg/dL 70-105 Serum or plasma calcium measurement (mass/volume) 9.0 mg/dL 8.5-10.1 Capillary blood glucose measurement by g lucometer (mass/volume) - 03/17/20 11:09 Capillary blood glucose measurement by glucometer (mas s/volume) 211 mg/dL 70-110 Complete blood count (CBC) with automate d white blood cell (WBC) differential - 04/21/20 14:56 Blood leukocytes automated count (number/volume) 6.1 10*3/uL 4.3-11.0 Blood erythrocytes automated count (number/volume) 3.05 10*6/uL 4.35-5.85 Venous blood hemoglobin measurement (mass/volume) 8.4 g/dL 13.3-17.7 Blood hematocrit (volume fraction) 27 % 40-54 Automated erythrocyte mean corpuscular volume 87 [ foz_us] 80-99 Automated erythrocyte mean corpuscular h emoglobin (mass per erythrocyte) 28 pg 25-34 Automated erythrocyte mean corpuscular h emoglobin concentration measurement (mass/volume) 32 g/dL 32-36 Automated erythrocyte distribution width ratio 14. 6 % 10.0- 14.5 Automated blood platelet count (count/volume) 176 10*3/uL 130-400 Automated blood platelet mean volume measurement 10.3 [foz_us] 7.4-10.4 Automated blood neutrophils/100 leukocytes 63 % 42-75 Automated blood lymphocytes/100 leukocytes 18 % 12-44 Blood monocytes/100 leukocytes 13 % 0-12 Automated blood eosinophils/100 leukocytes 5 % 0-10 Automated blood basophils/100 leukocytes 0 % 0-10 Blood neutrophils automated count (number/volume) 3.8 10*3 1.8-7.8 Blood lymphocytes automated count (number/volume) 1.1 10*3 1.0-4.0 Blood monocytes automated count (number/volume) 0. 8 10*3 0.0-1.0 Automated eosinophil count 0.3 10*3/uL 0 .0-0.3 Automated blood basophil count (count/volume) 0.0 10*3/uL 0.0-0.1 Comprehensive metabolic panel - 04/21/20 14:56 Serum or plasma sodium measurement (moles/volume) 137 mmol/L 135-145 Serum or plasma potassium measurement (moles/volume) 4.5 mmol/L 3.6-5.0 Serum or plasma chloride measurement (moles/volume) 99 mmol/L 98-107 Carbon dioxide 21 mmol/L 21-32 Serum or plasma anion gap determination (moles/volume) 17 mmol/L 5-14 Serum or plasma urea nitrogen measurement (mass/volume ) 47 mg/dL 7-18 Serum or plasma creatinine measurement (mass/volume) 4.41 mg/dL 0.60-1.30 Serum or plasma urea nitrogen/creatinine mass ratio 11 NRG Serum or plasma creatinine measurement w ith calculation of estimated glomerular filtration rate 14 NRG Serum or plasma glucose measurement (mass/volume) 150 mg/dL 70-105 Serum or plasma calcium measurement (mass/volume) 8.8 mg/dL 8.5-10.1 Serum or plasma total bilirubin measurement (mass/volu me) 0.4 mg/dL 0.1-1.0 Serum or plasma alkaline phosphatase federcio surement (enzymatic activity/volume) 118 U/L 40-136 Serum or plasma aspartate aminotransfera se measurement (enzymatic activity/volume) 9 U/L 5-34 Serum or plasma alanine aminotransferase measurement (enzymatic activity/volume) 8 U/L 0-55 Serum or plasma protein measurement (mass/volume) 6.7 g/dL 6.4-8.2 Serum or plasma albumin measurement (mass/volume) 3.4 g/dL 3.2-4.5 CALCIUM CORRECTED 9.3 mg/dL 8.5-10.1 Magnesium - 04/21/20 14:56 Magnesium 2.3 mg/dL 1.6-2.4 TROPONIN I FS - 04/21/20 14:56 TROPONIN I FS < 0.30 <0.30 PROBNP FS - 04/21/20 14:56 PROBNP FS 1779.0 pg/mL <75.0 Capillary blood glucose measurement by g lucometer (mass/volume) - 04/21/20 23:19 Capillary blood glucose measurement by glucometer (mas s/volume) 173 mg/dL 70-110 Capillary blood glucose measurement by g lucometer (mass/volume) - 04/22/20 06:06 Capillary blood glucose measurement by glucometer (mas s/volume) 143 mg/dL 70-110 Whole blood basic metabolic panel - 01/10 06:30 Serum or plasma sodium measurement (moles/volume) 135 mmol/L 135-145 Serum or plasma potassium measurement (moles/volume) 4.7 mmol/L 3.6-5.0 Serum or plasma chloride measurement (moles/volume) 102 mmol/L 98-107 Carbon dioxide 21 mmol/L 21-32 Serum or plasma anion gap determination (moles/volume) 12 mmol/L 5-14 Serum or plasma urea nitrogen measurement (mass/volume ) 51 mg/dL 7-18 Serum or plasma creatinine measurement (mass/volume) 4.75 mg/dL 0.60-1.30 Serum or plasma urea nitrogen/creatinine mass ratio 11 NRG Serum or plasma creatinine measurement w ith calculation of estimated glomerular filtration rate 13 NRG Serum or plasma glucose measurement (mass/volume) 148 mg/dL 70-105 Serum or plasma calcium measurement (mass/volume) 8.8 mg/dL 8.5-10.1 Capillary blood glucose measurement by g lucometer (mass/volume) - 04/22/20 11:20 Capillary blood glucose measurement by glucometer (mas s/volume) 85 mg/dL 70-110 Encounters ACCT No. Visit Date/Time Discharge Status Pt. Type Provider Facility Loc./Unit Complaint [id number] 03/14/2020 17:21:00 03/14/2020 20:35 :00 DIS Outpatient Jonathan [facility] ER [id number] 03/14/2020 20:12:49 Document Registration [id number] 04/21/2020 16:29:00 16:20:00 DIS Inpatient MARYAM MOMIN MD [facility] 4TH ACUTE CHF EXAC,ACUTE KI DNEY INJ,SYMPTOMATIC ANEMIA [id number] 03/14/2020 21:07:00 13:15:00 DIS Inpatient MARYAM MOMIN MD [facility] 4TH JYOTSNA [id number] 02/22/2020 07:26:00 23:59:59 CLS Outpatient ESEQUIEL CARDONA DO T [facility] RAD LUMBAR RADICULOPATHY [id number] 12/23/2019 05:52:00 12:33:00 DIS Inpatient MARYAM MOMIN MD [facility] 4TH STOMACHE PAIN [id number] 12/06/2019 07:56:00 14:10:00 DIS Outpatient Kingston HEBERT MD [facility] CATH CHEST PAIN [id number] 11/27/2019 09:19:00 11:51:00 DIS Emergency CANDY MATTHEWS, JILLIAN Walker [facility] ER FS SOB; ESTHER LWR EXTREMITY SWELLING [id number] 09/03/2019 11:50:00 23:59:59 CLS Preadmit MARLENI BECKWITH MD [facility] WOUNDCARE [id number] 08/23/2019 07:24:00 23:59:59 CLS Outpatient [place] HEBERT MD [facility] CARD CHEST TIGHTNESS,DIABETE S,SEVERE HYPERTENSION [id number] 07/31/2019 14:31:00 17:20:00 DIS Emergency RADHA MATTHEWS, WING Chan [facility] ER FS HIGH BP SOB [id number] 07/30/2019 05:55:00 07:50:00 DIS Emergency LISBET WILL DO [facility] ER FS ELEV BP/SOA [id number] 07/25/2019 14:45:00 12:54:00 DIS Inpatient GORDON MATTHEWS, MYAH Onofre [facility] 4TH HTN EMERGENCY ACUTE H EART FAILURE [id number] 07/20/2019 08:24:00 23:59:59 CLS Outpatient ESEQUIEL CARDONA DO [facility] RAD FS [id number] 04/15/2020 15:36:00 0 23:59:59 CLS Outpatient KATERIN LUGO Wound [facility]
[2020-06-16 09:40] LABS: WHITE BLOOD COUNT 12.4 10^3/uL (4.3-11.0)
[2020-06-16 09:41] LABS: BASOPHILS # (AUTO) 0.1 10^3/uL (0.0-0.1); BASOPHILS % (AUTO) 1 % (0-10); EOSINOPHILS # (AUTO) 0.6 10^3/uL (0.0-0.3); EOSINOPHILS % (AUTO) 5 % (0-10); HEMATOCRIT 38 % (40-54); HEMOGLOBIN 12.5 G/DL (13.3-17.7); LYMPHOCYTES # (AUTO) 1.5 X 10^3 (1.0-4.0); LYMPHOCYTES % (AUTO) 12 % (12-44); MEAN CORPUSCULAR HEMOGLOBIN 28 PG (25-34); MEAN CORPUSCULAR HGB CONC 33 G/DL (32-36); MEAN CORPUSCULAR VOLUME 83 FL (80-99); MEAN PLATELET VOLUME 9.6 FL (7.4-10.4); MONOCYTES # (AUTO) 0.7 X 10^3 (0.0-1.0); MONOCYTES % (AUTO) 6 % (0-12); NEUTROPHILS # (AUTO) 9.4 X 10^3 (1.8-7.8); NEUTROPHILS % (AUTO) 76 % (42-75); PLATELET COUNT 302 10^3/uL (130-400); RED CELL DISTRIBUTION WIDTH 14.3 % (10.0-14.5)
[2020-06-16] MEDS ORDERED: FAMOTIDINE 20MG/2ML IV (PEPCID) IVP ONE (09:45)
[2020-06-16 09:48] LABS: CLARITY,URINE CLEAR; COLOR,URINE YELLOW; GLUCOSE, URINE (UA) 1+ (NEGATIVE); PROTEIN,URINE 3+ (NEGATIVE)
[2020-06-16 09:49] LABS: BILIRUBIN,URINE NEGATIVE (NEGATIVE); KETONES,URINE NEGATIVE (NEGATIVE); LEUKOCYTE ESTERASE ,URINE NEGATIVE (NEGATIVE); NITRITE,URINE NEGATIVE (NEGATIVE); RBC,URINE RARE /HPF
[2020-06-16 10:09] LABS: ALBUMIN 3.9 GM/DL (3.2-4.5); BILIRUBIN,TOTAL 0.6 MG/DL (0.1-1.0); CALCIUM 9.9 MG/DL (8.5-10.1); CREATININE SERUM 2.91 MG/DL (0.60-1.30); POTASSIUM 3.8 MMOL/L (3.6-5.0); TOTAL PROTEIN 7.6 GM/DL (6.4-8.2)
--- NOTE | 2020-06-16 10:09 | Diagnostic Imaging Report ---
PROCEDURE: US Gallbladder. TECHNIQUE: Multiple real-time grayscale images were obtained over the right upper quadrant in various projections. INDICATION: Abdominal pain. The liver is normal in size 16.1 cm. No discrete liver mass is identified. Portal vein is patent and shows normal direction of flow. Gallbladder contains multiple small stones. No wall thickening or biliary duct dilatation is identified. Pancreas unremarkable. Right kidney is without calculi or hydronephrosis. There is no ascites. IMPRESSION: Cholelithiasis without evidence of acute cholecystitis. Dictated by: Dictated on workstation # [id number]
--- NOTE | 2020-06-16 10:17 | Diagnostic Imaging Report ---
PATIENT HISTORY: chf/ckd IV. TECHNIQUE: Single frontal view of the chest. COMPARISON: 04/21/2020 FINDINGS: The lung volumes are normal. No focal consolidation is seen. Aeration is improved compared to the prior study. No large pleural effusion or pneumothorax is seen. The cardiomediastinal silhouette is normal in size and contour. No acute osseous abnormality is seen. IMPRESSION: Improved aeration compared to the prior study with no acute pulmonary abnormality seen. Dictated by: Dictated on workstation # [id number]
--- NOTE | 2020-06-16 10:45 | NUR ---
COVID-19 swab was obtained and [facility] form was filled out.
[2020-06-16] MEDS ORDERED: BUME2TAB7 PO (12:36)
[2020-06-16] MEDS ORDERED: BUP/EPI 0.5% 1:200,000 (MARCAINE) 10ML VIAL IJ ONE ×2 (13:11→13:12)
[2020-06-16] MEDS ORDERED: IOPAMIDOL 61% 30 ML (ISOVUE 300) VIAL ONE (13:11)
[2020-06-16] MEDS ORDERED: proPOfol 200 MG/20 ML (DIPRIVAN) VIAL IV ONE (13:13)
[2020-06-16] MEDS ORDERED: fentaNYL INJECTION 100 MCG/2 ML AMP ONE ×2 (13:13→15:22)
[2020-06-16] MEDS ORDERED: ONDANSETRON 4 MG/2 ML (SDV) Z0FRAN ONE (13:13)
[2020-06-16] MEDS ORDERED: ROCURONIUM 10 MG/ML 5 ML SYRINGE IV ONE ×2 (13:13→14:41)
[2020-06-16] MEDS ORDERED: LIDOCAINE PF 2% 5 ML (XYLOCAINE) VIAL ONE (13:13)
[2020-06-16] MEDS ORDERED: SEVOFLURANE (ULTANE) 15 ML INHAL SOLN ONE ×2 (13:13→13:25)
[2020-06-16] MEDS ORDERED: FAMOTIDINE 20MG/2ML IV (PEPCID) IV ONE (13:15)
[2020-06-16] MEDS ORDERED: MIDAZOLAM 2 MG/2 ML (VERSED) VIAL ONE (13:25)
[2020-06-16] MEDS ORDERED: ceFAZolin 2 GM IV Premixed 50 ML ONE (13:26)
--- NOTE | 2020-06-16 13:32 | Consultation - Surgery ---
History of Present Illness History of Present Illness Patient Consulted On(viky/time) 06/16/20 13:26 Time Seen by Provider: 13:11 History of Present Illness Surgery asked to consult regarding Acute Cholecystitis with Cholelithiasis. HPI per ED: Patient presents to ER by private conveyance from home with chief complaint that he's having some epigastric abdominal pain radiating to his right upper quadrant since yesterday after eating an apricot. It was intermittent gripping cramping like and sharp. Then he ate some pizza with meat on it which set off even worse until about 2 in the morning. He did not take anything for the pain. He does take omeprazole daily. He has a history of cholelithiasis being worked up outpatient by his doctor at the [facility]. They're trying to get him set up for an MRCP. He does not follow with a surgeon yet. He's not having any fevers or nausea and just feeling of uncomfortableness. The car ride over was not any worse than it is now. He has a history of heart failure, heart disease, diabetes on short acting insulin, chronic kidney disease stage IV. He's had 3 separate surgeries for umbilical hernias including the last one had to resect about a 4 inch section of bowel that had become adhesed to the mesh. This has since then healed. He says last week his blood sugars are running normal round 140 using sliding scale insulin however the past few days they've been running high and he's had a couple above 300. No fevers or chills. No history of pancreatitis. He quit drinking 2 years ago. He does daily weights and says he was 281 yesterday and 284 this morning. He denies having increasing swelling in his legs or abdomen. Patient is on Brilinta but no blood thinners. When I spoke to pt he states he has been having this problem of over a year; "usually it grabs and then lets go, this time it just grabbed and pain wouldn't go away". Pt rates the pain now as a 3-4 out of 10; at its worst last night it was an 8. He states it usually occurs with fatty foods, last night he had pizza, but doesn't always occur. Allergies and Home Medications Allergies Coded Allergies: No Known Drug Allergies (Unverified , 06/16/20) Home Medications Aspirin 81 Mg Tablet.dr, 81 MG PO DAILY, (Reported) Atorvastatin Calcium 80 Mg Tablet, 80 MG PO DAILY, (Reported) Bumetanide 2 Mg Tablet, 2 MG PO UD, (Reported) 4mg am 2mg hs Carvedilol 25 Mg Tab, 25 MG PO BID, (Reported) Hydrocodone/Acetaminophen 1 Each Tablet, 1 EACH PO Q6H PRN for PAIN-SEVERE (8- 10) Prescribed by: MYAH LEYVA on 03/17/20 1321 Insulin Aspart 300 Units/3 Ml Solution, 15-25 UNITS SQ AC, (Reported) Insulin Glargine,Hum.rec.anlog 100 Unit/1 Ml Insuln.pen, 80 UNITS SC HS, (Repo rted) Metolazone 5 Mg Tablet, 5 MG PO DAILY, (Reported) Omeprazole 20 Mg Capsule.dr, 20 MG PO DAILY, (Reported) Potassium Chloride 8 Meq Tablet.er, 8 MEQ PO 1999, (Reported) Potassium Chloride 8 Meq Capsule.er, 16 MEQ PO DAILY, (Reported) TAKES 2 (8MEQ) TABS Pregabalin 75 Mg Capsule, 75 MG PO BID, (Reported) Ticagrelor 90 Mg Tablet, 90 MG PO BID, (Reported) Patient Home Medication List Home Medication List Reviewed: Yes Past Pmewims-Kqdfbo-Hojljp Hx Patient Social History Alcohol Use: Past History Recreational Drug Use: No Drug of Choice: POT Smoking Status: Former Smoker Type Used: Smokeless Tobacco 2nd Hand Smoke Exposure: No Recent Foreign Travel: No Contact w/Someone Who Travel: No Recent Infectious Disease Expo: No Recent Hopitalizations: Yes (ADMITTED TO [facility] April 21, 2020) Immunizations Up To Date Tetanus Booster (TDap): Unknown Date of Influenza Vaccine: Sep 05, 2019 Seasonal Allergies Seasonal Allergies: No Surgeries History of Surgeries: Yes (Colon resection, Left foot surgery, umbilical hernia repair) Surgeries: Abdominal, Bowel Surgery, Coronary Stent, Orthopedic Respiratory History of Respiratory Disorde: Yes Respiratory Disorders: Sleep Apnea Cardiovascular History of Cardiac Disorders: Yes Cardiac Disorders: Chronic Edema/Swelling, Coronary Artery Disease, High Cholesterol, Hypertension Neurological History of Neurological Disord: Yes Neurological Disorders: Neuropathy, TIA Genitourinary History of Genitourinary Disor: Yes Genitourinary Disorders: Renal Failure Gastrointestinal History of Gastrointestinal Di: No Musculoskeletal History of Musculoskeletal Dis: No Endocrine History of Endocrine Disorders: Yes Endocrine Disorders: Diabetes, Insulin dep HEENT History of HEENT Disorders: No Loss of Vision: Denies Hearing Impairment: Denies Cancer History of Cancer: No Psychosocial History of Psychiatric Problem: No Integumentary History of Skin or Integumenta: Yes (diabetic leg ulcer with MRSA) Blood Transfusions History of Blood Disorders: No Family Medical History Significant Family History: No Pertinent Family Hx, Cancer, Diabetes, Hypertension Family Medial History: Alcoholism 19 FATHER Colon cancer G8 SISTER Diabetes mellitus 19 MOTHER FH: lung cancer 19 MOTHER Review of Systems-General Constitutional: No diaphoresis; malaise, weakness EENTM: No blurred vision, No double vision, No mouth pain, No mouth swelling, No epistaxis Respiratory: No cough, No dyspnea on exertion, No short of breath Cardiovascular: No chest pain, No palpitations Gastrointestinal: abdominal pain (RUQ); No jaundice, No nausea, No vomiting Genitourinary: decreased output (pt in ESRD); No dysuria, No frequency Musculoskeletal: joint pain, joint swelling, muscle pain Skin: No change in color, No change in hair/nails Psychiatric/Neurological: Denies Anxiety, Denies Depressed, Denies Seizure, Denies Tremors Other pt denies any hx of abnormal bleeding or bruising Physical Exam-General Problems Physical Exam Vital Signs Vital Signs - First Documented 06/16/20 09:15 Temp 36.7 Pulse 62 Resp 18 B/P (MAP) 161/74 (103) Pulse Ox 97 O2 Delivery Room Air Capillary Refill : Less Than 3 Seconds General Appearance: WD/WN, no apparent distress, obese Eyes: Bilateral Eye PERRL, Bilateral Eye EOMI HEENT: pharynx normal; No scleral icterus (R), No scleral icterus (L) Neck: non-tender, full range of motion, supple Respiratory: chest non-tender, lungs clear, normal breath sounds, no respiratory distress, no accessory muscle use Cardiovascular: regular rate, rhythm, no murmur Gastrointestinal: soft, no organomegaly, no pulsatile mass; No guarding; tenderness (RUQ) Back: no CVA tenderness, no vertebral tenderness Extremities: no pedal edema, no calf tenderness, normal capillary refill, other (B/L chronic venous stasis) Neurologic/Psychiatric: forming fixer II-XII nml as tested, no motor/sensory deficits, alert, normal mood/affect, oriented x 3 Skin: normal color, warm/dry Lymphatic: no adenopathy (neck, axilla or groin) Data Review Labs Laboratory Tests 06/16/20 09:16: Urine Color YELLOW, Urine Clarity CLEAR, Urine pH 6.0, Urine Specific [place] 1.025H, Urine Protein 3+H, Urine Glucose (UA) 1+H, Urine Ketones NEGATIVE, Urine Nitrite NEGATIVE, Urine Bilirubin NEGATIVE, Urine Urobilinogen 0.2, Urine Leukocyte Esterase NEGATIVE, Urine RBC (Auto) TRACEH, Urine RBC RARE, Urine WBC NONE, Urine Crystals NONE, Urine Bacteria NONE, Urine Casts NONE, Urine Mucus NEGATIVE, Urine Culture Indicated NO 06/16/20 09:29: White Blood Count 12.4H, Red Blood Count 4.51, Hemoglobin 12.5L, Hematocrit 38L, Mean Corpuscular Volume 83, Mean Corpuscular Hemoglobin 28, Mean Corpuscular Hemoglobin Concent 33, Red Cell Distribution Width 14.3, Platelet Count 302, Mean Platelet Volume 9.6, Neutrophils (%) (Auto) 76H, Lymphocytes (%) (Auto) 12, Monocytes (%) (Auto) 6, Eosinophils (%) (Auto) 5, Basophils (%) (Auto) 1, Neutrophils # (Auto) 9.4H, Lymphocytes # (Auto) 1.5, Monocytes # (Auto) 0.7, Eosinophils # (Auto) 0.6H, Basophils # (Auto) 0.1, Sodium Level 135, Potassium Level 3.8, Chloride Level 95L, Carbon Dioxide Level 27, Anion Gap 13, Blood Urea Nitrogen 54H, Creatinine 2.91H, Estimat Glomerular Filtration Rate 23, BUN/Creatinine Ratio 19, Glucose Level 264H, Calcium Level 9.9, Corrected Calcium 10.0, Total Bilirubin 0.6, Aspartate Amino Transf (AST/SGOT) 11, Alanine Aminotransferase (ALT/SGPT) 12, Alkaline Phosphatase 124, Pro-B-Type Natriuretic Peptide 346.9H, Total Protein 7.6, Albumin 3.9, Lipase 49 06/16/20 10:45: Radiology Date of Exam:06/16/20 US GALLBLADDER [id number] PROCEDURE: US Gallbladder. TECHNIQUE: Multiple real-time grayscale images were obtained over the right upper quadrant in various projections. INDICATION: Abdominal pain. The liver is normal in size 16.1 cm. No discrete liver mass is identified. Portal vein is patent and shows normal direction of flow. Gallbladder contains multiple small stones. No wall thickening or biliary duct dilatation is identified. Pancreas unremarkable. Right kidney is without calculi or hydronephrosis. There is no ascites. IMPRESSION: Cholelithiasis without evidence of acute cholecystitis. Dictated on workstation # [id number] Dict: 06/16/20 1005 Trans: 06/16/20 1009 CVB [id number] Interpreted by: DECLAN ORDONEZ MD Electronically signed by: Assessment/Plan Assessment/Plan Assessment/Plan Acute Cholecystitis with cholelithiasis Pt has RUQ pain, US showed many small stones but no wall thickening or fluid and he has symptoms which seem to suggest Acute Cholecystitis secondary to Cholecystitis. He has been worked up in the past and is supposed to be seeing surgeon for possible surgery. He has had pain for over one day and I believe would benefit from removing his gallbladder. He states he is tired of this pain and ready to get the gallbladder taken out. I discussed the procedure with him and his (Laparoscopic Cholecystectomy with possible cholangiogram and po ssible open) going over risks and complications not limited to pain, bleeding, infection, scar, damage to bowel or bile duct and need for further procedure. All questions answered to their satisfaction. He is being admitted to same day surgery, npo, pain control and consent obtained. He will go to the OR for cholecystectomy. DHEERAJ ROCHA DO Jun 16, 2020 13:32
[2020-06-16] MEDS: LACTATED RINGERS 1,000 ML IV PRN ×2 (13:34→14:50)
[2020-06-16] MEDS ORDERED: ceFAZolin 2 GM/50 ML (PRE-MIXED) IV ONE (13:45)
--- OUTSIDE RECORDS SUMMARY | 2020-06-16 13:45 | XMS REPORT | Continuity of Care Document ---
Author Organization Unknown Address Unknown Phone Unavailable Allergies Active Description Code Type Severity Reaction Onset Reported/Identified Relationship to Patient Clinical Status Yes NO KNOWN DRUG ALLERGIES UNKNOWN UNKNOWN Yes No Known Drug Allergies [id number] Drug Allergy Unknown N/A 07/25/2019 Medications Medication [...] Ot I25. 10 ATHSCL HEART DISEASE OF [place] CORONARY 07/27/2019 MYAH LEYVA MD, Ot I25. 2 OLD MYOCARDIAL INFARCTION 07/27/2019 MYAH LEYVA MD, Ot I50. 9 HEART FAILURE, UNSPECIFIED 07/27/2019 MYAH LEYVA MD, Ot N18. 9 CHRONIC KIDNEY DISEASE, UNSPECIFIED 07/27/2019 MYAH LEYVA MD, Ot Z68. 42 BODY MASS INDEX (BMI) 45.0-49.9, ADULT 07/27/2019 MYAH LEYVA MD, Ot Z79. 4 COOK FISH AND CHIPS (CURRENT) USE OF INSULIN 07/27/2019 MYAH LEYVA [...] Ot I25. 10 ATHSCL HEART DISEASE OF [place] CORONARY 07/27/2019 MYAH LEYVA MD, Ot I25. [...] 07/27/2019 MYAH LEYVA MD, Ot Z79. 4 CUSTODIAL (CURRENT) USE OF INSULIN 07/27/2019 MYAH LEYVA [...] UNSPECIFIED 07/30/2019 LISBET WILL DO, Ot Z79.02 CUSTODIAL (CURRENT) USE OF ANTITHROMBOTI 07/30/2019 WILL DO, LISBET Ot Z79.4 CUSTODIAL (CURRENT) USE OF INSULIN 07/30/2019 WILL DO, [...] 07/31/2019 WING GARCIA MD Ot Z79.0 2 COOK FISH AND CHIPS (CURRENT) USE OF ANTITHROMBOTI 07/31/2019 WING GARCIA MD Ot Z79.4 CUSTODIAL (CURRENT) USE OF INSULIN 07/31/2019 WING GARCIA [...] UNSPECIFIED 08/02/2019 WILL DO, LISBET Ot Z79.02 CUSTODIAL (CURRENT) USE OF ANTITHROMBOTI 08/02/2019 WILL DO, LISBET Ot Z79.4 CUSTODIAL (CURRENT) USE OF INSULIN 08/02/2019 WILL DO, [...] MD Ot I50.9 HEART FAILURE, UNSPECIFIED 08/05/2019 WNIG GARCIA MD Ot R06.0 2 SHORTNESS OF BREATH 08/05/2019 WING GARCIA MD, Ot Z79.0 2 CUSTODIAL (CURRENT) USE OF ANTITHROMBOTI 08/05/2019 WING GARCIA MD Ot Z79.4 COOK FISH AND CHIPS (CURRENT) USE OF INSULIN 08/05/2019 WING GARCIA [...] CARDONA DO Ot M54.9 DORSALGIA, UNSPECIFIED 11/27/2019 JILLIAN GUPTA MD, Ot 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 11/27/2019 JILLIAN GUPTA MD, Ot E11.40 TYPE [...] BREATH 11/27/2019 JILLIAN GUPTA MD, Ot Z79.02 CUSTODIAL (CURRENT) USE OF ANTITHROMBOTI 11/27/2019 JILLIAN GUPTA MD, Ot Z79.4 CUSTODIAL (CURRENT) USE OF INSULIN 11/27/2019 JILLIAN GUPTA [...] 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 12/03/2019 CANDY MATTHEWS, JILLIAN Walker Ot E11.40 [...] BREATH 12/03/2019 JILLIAN GUPTA MD, Ot Z79.02 CUSTODIAL (CURRENT) USE OF ANTITHROMBOTI 12/03/2019 JILLIAN GUPTA MD, Ot Z79.4 CUSTODIAL (CURRENT) USE OF INSULIN 12/03/2019 JILLIAN GUPTA [...] 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 12/07/2019 Kingston HEBERT MD, Ot E66 .9 OBESITY, UNSPECIFIED 12/07/2019 Kingston HEBERT MD, Ot E78 .5 HYPERLIPIDEMIA, UNSPECIFIED 12/07/2019 Kingston HEBERT MD Ot 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 12/07/2019 Kingston HEBERT MD, Ot I25.10 ATHSCL HEART DISEASE OF [place] CORONARY 12/07/2019 Kingston HEBERT MD Ot I50.32 CHRONIC DIASTOLIC (CONGESTIVE) HEART SOCORRO 12/07/2019 Kingston HEBERT MD, Ot N18 .9 CHRONIC KIDNEY DISEASE, UNSPECIFIED 12/07/2019 Kingston HEBERT MD Ot Z79.02 COOK FISH AND CHIPS (CURRENT) USE OF ANTITHROMBOTI 12/07/2019 Kingston HEBERT MD Ot Z79.899 OTHER COOK FISH AND CHIPS (CURRENT) DRUG THERAPY 12/07/2019 Kingston HEBERT MD, Ot Z80 .9 FAMILY HISTORY OF MALIGNANT NEOPLASM, UN 12/07/2019 Kingston HEBERT MD, Ot Z82 .3 FAMILY HISTORY [...] 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 12/10/2019 Kingston HEBERT MD Ot E66 .9 OBESITY, UNSPECIFIED 12/10/2019 Kingston HEBERT MD, Ot E78 .5 HYPERLIPIDEMIA, UNSPECIFIED 12/10/2019 Kingston HEBERT MD Ot 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 12/10/2019 Kingston HEBERT MD Ot I25.10 ATHSCL HEART DISEASE OF [place] CORONARY 12/10/2019 Kingston HEBERT MD Ot I50.32 CHRONIC DIASTOLIC (CONGESTIVE) HEART SOC[place]RO 12/10/2019 Kingston HEBERT MD, Ot N18 .9 CHRONIC KIDNEY DISEASE, UNSPECIFIED 12/10/2019 Kingston HEBERT MD, Ot Z79.02 COOK FISH AND CHIPS (CURRENT) USE OF ANTITHROMBOTI 12/10/2019 Kingston HEBERT MD, Ot Z79.899 OTHER COOK FISH AND CHIPS (CURRENT) DRUG THERAPY 12/10/2019 Kingston HEBERT MD, Ot Z80 .9 FAMILY HISTORY OF MALIGNANT NEOPLASM, UN 12/10/2019 Kingston HEBERT MD, Ot Z82 .3 FAMILY HISTORY [...] 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 12/11/2019 Kingston HEBERT MD, Ot E66 .9 OBESITY, UNSPECIFIED 12/11/2019 Kingston HEBERT MD, Ot E78 .5 HYPERLIPIDEMIA, UNSPECIFIED 12/11/2019 Kingston HEBERT MD, Ot 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 10 ATHSCL HEART DISEASE OF [place] CORONARY 12/24/2019 MARYAM MOMIN MD, Ot I50. [...] 12/24/2019 MARYAM MOMIN MD, Ot Z79. 4 CUSTODIAL (CURRENT) USE OF INSULIN 12/24/2019 MARYAM MOMIN [...] Ot I25. 10 ATHSCL HEART DISEASE OF [place] CORONARY 12/25/2019 MARYAM MOMIN MD, Ot I50. 32 CHRONIC DIASTOLIC (CONGESTIVE) HEART [place] 12/25/2019 MARYAM MOMIN MD, Ot I50. 9 HEART FAILURE, UNSPECIFIED 12/25/2019 MARYAM MOMIN MD Ot I87. 8 OTHER SPECIFIED DISORDERS OF VEINS 12/25/2019 MARYAM MOMIN MD, Ot J18. 9 PNEUMONIA, UNSPECIFIED ORGANISM 12/25/2019 MARYAM MOMIN MD, Ot K56.699 OTHER INTESTNL [...] 12/25/2019 MARYAM MOMIN MD, Ot Z79. 4 COOK FISH AND CHIPS (CURRENT) USE OF INSULIN 12/25/2019 MARYAM MOMIN MD, Ot Z79. 82 COOK FISH AND CHIPS (CURRENT) USE OF ASPIRIN 12/25/2019 MARYAM MOMIN [...] 03/14/2020 Fransisco Castillo 414.01 CORONARY ATHEROSCLEROSIS OF [place] CORONARY ARTERY 03/14/2020 Fransisco Castillo 584.9 ACUTE KIDNEY FAILURE, UNSPECIFIED 03/14/2020 Fransisco Castillo E66.01 MORBID (SEVERE) OBESITY DUE TO EXCESS CALORIES 03/14/2020 Fransisco Catsillo E78.5 HYPERLIPIDEMIA, UNSPECIFIED 03/14/2020 Fransisco Castillo I10 ESSENTIAL (PRIMARY) HYPERTENSION 03/14/2020 Fransisco Castillo I25.10 ATHSCL HEART DISEASE OF [place] CORONARY ARTERY W/O ANG PCTRS 03/14/2020 Fransisco [...] Ot I25. 10 ATHSCL HEART DISEASE OF [place] CORONARY 03/17/2020 MARYAM MOMIN MD Ot I50. 9 HEART FAILURE, UNSPECIFIED 03/17/2020 MARYAM MOMIN MD, Ot N17. 9 ACUTE KIDNEY FAILURE, UNSPECIFIED 03/17/2020 MARYAM MOMIN MD, Ot N18. 3 CHRONIC KIDNEY DISEASE, STAGE 3 (MODERAT 03/17/2020 MARYAM MOMIN MD Ot R05 COUGH 03/17/2020 MARYAM MOMIN MD, Ot Z79. 4 COOK FISH AND CHIPS (CURRENT) USE OF INSULIN 03/17/2020 MARYAM MOMIN [...] Ot I25. 10 ATHSCL HEART DISEASE OF [place] CORONARY 03/17/2020 MARYAM MOMIN MD Ot I50. 9 HEART FAILURE, UNSPECIFIED 03/17/2020 MARYAM MOMIN MD Ot N17. 9 ACUTE KIDNEY FAILURE, UNSPECIFIED 03/17/2020 MARYAM MOMIN MD Ot N18. 3 CHRONIC KIDNEY DISEASE, STAGE 3 (MODERAT 03/17/2020 MARYAM MOMIN MD Ot R05 COUGH 03/17/2020 MARYAM MOMIN MD, Ot Z79. 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 42 [...] Ot I25. 10 ATHSCL HEART DISEASE OF [place] CORONARY 04/22/2020 MARYAM MOMIN MD Ot I50. 33 ACUTE ON CHRONIC DIASTOLIC (CONGESTIVE) 04/22/2020 MARYAM MOMIN MD, Ot N17. 9 ACUTE KIDNEY FAILURE, UNSPECIFIED 04/22/2020 MARYAM MOMIN MD, Ot N18. 9 CHRONIC KIDNEY DISEASE, UNSPECIFIED 04/22/2020 MARYAM MOMIN MD Ot R34 ANURIA AND OLIGURIA 04/22/2020 MARYAM MOMIN MD, Ot Z79. 4 CUSTODIAL (CURRENT) USE OF INSULIN 04/22/2020 MARYAM MOMIN [...] Code Description Performed By Per formed On [id number] DR LONGO OF STOMACH WITH DRAINAGE DEVICE [...] Negative Urine-Blood 1+ Negative Urine-Color Yellow Colorless-Lt. Bullock ow Urine-Epithelial Cells 0-5/HPF Urine-Glucose Trace Negative Urine-Ketones Negative Negative Urine-Leukocytes Negative Negative Urine-Nitrite Negative Negative Urine-Other Urine Saved if Culture Need ed (48hrs from time of collection) Urine-pH 7.0 5-8.5 Urine-Protein 3+ Negative Urine-RBC 2-5/HPF Urine-Specific Vader 1.020 1.000-1 .030 Urine-WBC 0-2/HPF Urobilinogen 0.2 0.2-1.0 COVID19 - 03/14/20 18:05 COVID19 [facility], Results have been scanned Capillary blood [...] plasma alkaline phosphatase federico surement (enzymatic activity/volume) 118 U/L 40-136 Serum [...] by glucometer (mas s/volume) 85 mg/dL 70-110 Complete urinalysis with reflex to cultu re - 06/16/20 09:16 Urine color determination YELLOW NRG Urine clarity determination CLEAR NR G Urine pH measurement by test strip 6.0 5-9 Specific gravity of urine by test strip 1.025 1.016-1.022 Urine protein assay by test strip, semi-quantitative 3+ NEGATIVE Urine glucose detection by automated test strip 1+ NEGATIVE Erythrocytes detection in urine sediment by light micr oscopy TRACE NEGATIVE Urine ketones detection by automated test strip NE GATIVE NEGATIVE Urine nitrite detection by test strip NEGATIVE NEGATIVE Urine total bilirubin detection by test strip NEGA TIVE NEGATIVE Urine urobilinogen measurement by automated test strip (mass/volume) 0.2 mg/dL < = 1.0 Urine leukocyte esterase detection by dipstick NEG ATIVE NEGATIVE Automated urine sediment erythrocyte cou nt by microscopy (number/high power field) RARE NRG Automated urine sediment leukocyte count by microscopy (number/high power field) NONE NRG Bacteria detection in urine sediment by light microsco py NONE NRG Crystals detection in urine sediment by light microsco py NONE NRG Casts detection in urine sediment by light microscopy NONE NRG Mucus detection in urine sediment by light microscopy NEGATIVE NRG Complete urinalysis with reflex to culture NO NRG Complete blood count (CBC) with automate d white blood cell (WBC) differential - 06/16/20 09:29 Blood leukocytes automated count (number/volume) 12.4 10*3/uL 4.3-11.0 Blood erythrocytes automated count (number/volume) 4.51 10*6/uL 4.35-5.85 Venous blood hemoglobin measurement (mass/volume) 12.5 g/dL 13.3-17.7 Blood hematocrit (volume fraction) 38 % 40-54 Automated erythrocyte mean corpuscular volume 83 [ foz_us] 80-99 Automated erythrocyte mean corpuscular h emoglobin (mass per erythrocyte) 28 pg 25-34 Automated erythrocyte mean corpuscular h emoglobin concentration measurement (mass/volume) 33 g/dL 32-36 Automated erythrocyte distribution width ratio 14. 3 % 10.0- 14.5 Automated blood platelet count (count/volume) 302 10*3/uL 130-400 Automated blood platelet mean volume measurement 9.6 [foz_us] 7.4-10.4 Automated blood neutrophils/100 leukocytes 76 % 42-75 Automated blood lymphocytes/100 leukocytes 12 % 12-44 Blood monocytes/100 leukocytes 6 % 0-12 Automated blood eosinophils/100 leukocytes 5 % 0-10 Automated blood basophils/100 leukocytes 1 % 0-10 Blood neutrophils automated count (number/volume) 9.4 10*3 1.8-7.8 Blood lymphocytes automated count (number/volume) 1.5 10*3 1.0-4.0 Blood monocytes automated count (number/volume) 0. 7 10*3 0.0-1.0 Automated eosinophil count 0.6 10*3/uL 0 .0-0.3 Automated blood basophil count (count/volume) 0.1 10*3/uL 0.0-0.1 Comprehensive metabolic panel - 06/16/20 09:29 Serum or plasma sodium measurement (moles/volume) 135 mmol/L 135-145 Serum or plasma potassium measurement (moles/volume) 3.8 mmol/L 3.6-5.0 Serum or plasma chloride measurement (moles/volume) 95 mmol/L 98-107 Carbon dioxide 27 mmol/L 21-32 Serum or plasma anion gap determination (moles/volume) 13 mmol/L 5-14 Serum or plasma urea nitrogen measurement (mass/volume ) 54 mg/dL 7-18 Serum or plasma creatinine measurement (mass/volume) 2.91 mg/dL 0.60-1.30 Serum or plasma urea nitrogen/creatinine mass ratio 19 NRG Serum or plasma creatinine measurement w ith calculation of estimated glomerular filtration rate 23 NRG Serum or plasma glucose measurement (mass/volume) 264 mg/dL 70-105 Serum or plasma calcium measurement (mass/volume) 9.9 mg/dL 8.5-10.1 Serum or plasma total bilirubin measurement (mass/volu me) 0.6 mg/dL 0.1-1.0 Serum or plasma alkaline phosphatase federico surement (enzymatic activity/volume) 124 U/L 40-136 Serum or plasma aspartate aminotransfera se measurement (enzymatic activity/volume) 11 U/L 5-34 Serum or plasma alanine aminotransferase measurement (enzymatic activity/volume) 12 U/L 0-55 Serum or plasma protein measurement (mass/volume) 7.6 g/dL 6.4-8.2 Serum or plasma albumin measurement (mass/volume) 3.9 g/dL 3.2-4.5 CALCIUM CORRECTED 10.0 mg/dL 8.5-10.1 PROBNP FS - 06/16/20 09:29 PROBNP FS 346.9 pg/mL <75.0 Lipase - 06/16/20 09:29 Lipase 49 U/L 8-78 Encounters ACCT No. Visit Date/Time Discharge Status Pt. Type Provider Facility Loc./Unit Complaint [id number] 03/14/2020 17:21:00 03/14/2020 20:35 :00 [id number] 03/14/2020 20:12:49 Document Registration [id number] 04/21/2020 16:29:00 16:20:00 DIS Inpatient MARYAM MOMIN MD [facility] 4TH ACUTE CHF EXAC,ACUTE KI DNEY INJ,SYMPTOMATIC ANEMIA [id number] 03/14/2020 21:07:00 13:15:00 DIS Inpatient MARYAM MOMIN MD [facility] 4TH JYOTSNA [id number] 02/22/2020 07:26:00 23:59:59 CLS Outpatient ESEQUIEL CARDONA DO [facility] RAD LUMBAR RADICULOPATHY [id number] 12/23/2019 05:52:00 12:33:00 DIS Inpatient MARYAM MOMIN MD [facility] 4TH STOMACHE PAIN [id number] 12/06/2019 07:56:00 14:10:00 DIS Outpatient [place] HEBERT MD [facility] CATH CHEST PAIN [id number] 11/27/2019 09:19:00 11:51:00 DIS Emergency JILLIAN GUPTA MD [facility] ER FS SOB; ESTHER LWR EXTREMITY SWELLING [id number] 09/03/2019 11:50:00 23:59:59 CLS Preadmit MARLENI BECKWITH MD [facility] WOUNDCARE [id number] 08/23/2019 07:24:00 23:59:59 CLS Outpatient EMILEE MATTHEWS, [place] SEYMOUR [facility] CARD CHEST TIGHTNESS,DIABETE S,SEVERE HYPERTENSION [id number] 07/31/2019 14:31:00 17:20:00 DIS Emergency WING GARCIA MD [facility] ER FS HIGH BP SOB [id number] 07/30/2019 05:55:00 07:50:00 DIS Emergency LISBET WILL DO [facility] ER FS ELEV BP/SOA [id number] 07/25/2019 14:45:00 12:54:00 DIS Inpatient GORDON MATTHEWS, MYAH Onofre [facility] 4TH HTN EMERGENCY ACUTE H EART FAILURE [id number] 07/20/2019 08:24:00 23:59:59 CLS Outpatient ESEQUIEL CARDONA DO [facility] RAD FS [id number] 06/16/2020 09:41:00 Document Registration [id number] 04/15/2020 15:36:00 0 23:59:59 CLS Outpatient [facility]
[2020-06-16] MEDS ORDERED: GLYCOPYRROLATE 0.2 MG/ML (ROBINUL) 2 ML VIAL ONE (14:27)
[2020-06-16] MEDS ORDERED: NEOSTIGMINE 3 MG/3 ML VIAL ONE (14:27)
--- NOTE | 2020-06-16 15:01 | Progress Note-Post Operative ---
Post-Operative Progess Note Surgeon (s)/Network Firewall Engineer (s) Surgeon DHEERAJ ROCHA DO Network Firewall Engineer: Federico Pre-Operative Diagnosis Acute Pamela/pamela Post-Operative Diagnosis same plus adhesions Procedure & Operative Findings Date of Procedure 06/16/20 Procedure Performed/Findings PROCEDURE: Laparoscopic cholecystectomy with intraoperative cholangiogram. COMPLICATIONS: None. PROCEDURE: The patient was taken to the operating suite and was prepped and draped in sterile fashion. A surgical pause was performed. Because of previous surgery we started in the Left upper quadrant, infiltrated with local and then used an #11 blade to make a 12 mm incision. Dissection was taken down to the fascia, which was then scored and grasped with a Alfie and the abdomen was then entered. A 0 Vicryl suture was placed in a ovkpbc-[id number]-kgexy fashion and a Rhodes trocar was placed and secured. Pneumoperitoneum was achieved and immediately noted the adhesions from previous umbilical surgery. A 5mm trochar placed above adhesions in midline, then one subxyphoid and 2 placed in the right upper quadrant; all under direct visualization. The gallbladder was then grasped and elevated. The cystic duct, and cystic artery were then dissected out. Clip was placed on the distal portion of the cystic duct which was then partially transected. An arrow catheter was inserted into the duct. The cholangiogram was then performed. No filing defects and contrast made its way into the duodenum. Catheter removed. Clips were placed on proximal portion of the cystic duct and then the duct was then transected. Clips were placed along the proximal and distal portion of the cystic artery which was then transected. Hook cautery was used to dissect the gallbladder from the gallbladder fossa achieving hemostasis. The gallbladder was placed in an Endobag and removed through the 12 mm trocar site. The abdomen was then reinspected. Copious amounts of irrigation were used to irrigate the abdomen and there were no signs of active bleeding. Hemostasis had been achieved. The 12 mm fascial defect was then closed with 0 Vicryl suture that had been placed in a [id number]-uw-[id number] fashion. The abdomen was then desufflated, the trocars were removed. The abdomen was then washed and dried. The skin was then closed using 4-0 Monocryl in a subcuticular fashion. The abdomen was washed and dried and Skin Affix was place over incisions. Patient tolerated the procedure well without any complications and was taken to the recovery room in stable condition. Anesthesia Type GET Estimated Blood Loss Estimated blood loss (mL): scant Specimens/Packing Specimens Removed GB and contents DHEERAJ ROCHA DO Jun 16, 2020 15:01
[2020-06-16] MEDS ORDERED: HYDR-3817 PO (15:04)
--- NOTE | 2020-06-16 15:05 | Discharge Inst-Surgical ---
Discharge Inst-Surgical Depart Medication/Instructions New, Converted or Re-Newed RX: RX Given to Pt/Family Patient Instructions Follow up Appt: Make appointment for 1 week. [phone] Instructions: No lifting greater than 20 pounds. No strenuous activity. May shower in 24 hours, no tub bath or soaking. Use incentive spirometer at home as directed. No Smoking Skin/Wound Care: May remove bandages in am. You need to leave the Dermabond on incision it will fall off on it's own. Symptoms to Report: Appetite Changes, Extremity Discoloration, Numbness/Tingling, Swelling Increased, Bleeding Excessive, Eyesight Changes, Pain Increased, Urine Color Change, Constipation(Persistent), Fever over 101 degree F, Pain/Pressure in chest, Urinating Difficulty, Cough Up/Vomit Blood, Heart Beat Irreg/Pounding, Pain/Pressure in jaw, Cramps in feet or legs, Lightheadedness, Pain/Pressure in shoulder, Diarrhea(Persistent), Memory Changes Suddenly, Questions/Concerns, Weight gain consecutive days, Dizziness/Fainting, Nausea/Vomiting, Shortness of Breath, Weight gain over 2 pounds If questions or concerns contact your physician Or seek help at emergency department. Activity Activity as Tolerated: Yes Activity Instructions: Avoid Stress to Incision Driving Instructions: No Driving/Refer to Dr. Pepper Discharge Diet: Avoid Fatty Foods, Low Fat/Low Cholesterol If Any Problems/Questions/Issu: Contact Your Physician, Go to Emergency Room Skin/Wound Care Infection Signs and Symptoms: Increased Redness, Foul Odor of Wound, Increased Drainage, Skin Itchy or Has a Rash, Increased Swelling, Temperature Above 101 F Wound Care Comment: heating pad to shoulder or neck for pain tonight Bathing Instructions: Shower Ice Pack: Ice On and Off Site DHEERAJ ROCHA DO Jun 16, 2020 15:05
[2020-06-16] MEDS ORDERED: SUGAMMADEX 500 MG/5 ML VIAL (BRIDION) IV ONE (15:06)
--- NOTE | 2020-06-16 15:29 | Anesthesia-General Post-Op ---
General Patient Condition Mental Status/LOC: Same as Preop Cardiovascular: Satisfactory Nausea/Vomiting: Absent Respiratory: Satisfactory Pain: Controlled Complications: Absent Post Op Complications Complications None Follow Up Care/Instructions Patient Instructions None needed. Anesthesia/Patient Condition Patient Condition Patient is doing well, no complaints, stable vital signs, no apparent adverse anesthesia problems. No complications reported per nursing. KELLEN FORBES CRNA Jun 16, 2020 15:29
[2020-06-16] MEDS ORDERED: fentaNYL INJECTION 100 MCG/2 ML AMP IVP ONE (15:30)
[2020-06-16] MEDS ORDERED: MEPERIDINE (DEMEROL) INJ 50 MG/ML IVP ONE (15:30)
[2020-06-16] MEDS ORDERED: PROMETHAZINE INJ 25 MG/ML (PHENERGAN) AMP IVP ONE (15:30)
[2020-06-16] MEDS ORDERED: ONDANSETRON 4 MG/2 ML (SDV) Z0FRAN IVP PRN (15:30)
--- NOTE | 2020-06-16 15:35 | Diagnostic Imaging Report ---
INDICATION: Laparoscopic cholangiogram. COMPARISON: None. TOTAL FLUOROSCOPY TIME: 7 seconds. TOTAL NUMBER OF FLUOROSCOPIC IMAGES SAVED: 35. FINDINGS: Multiple intraoperative and digital subtraction views of the right upper abdominal quadrant were obtained during intraoperative cholangiogram. Contrast opacifies the common bile duct. There is reflux into the common hepatic as well as the left and right intrahepatic biliary ducts. There is also extension of contrast into the small bowel and reflux into the proximal pancreatic duct. No intraluminal filling defects are seen. There is no focal stenosis. Please note, the interpreting radiologist was not present during the procedure. IMPRESSION: Fluoroscopic guidance provided during intraoperative cholangiogram as above. Dictated by: Dictated on workstation # [id number]
== END 2020-06-16 17:20 | disposition home or self-care (01) ==
LOC: EDUNIT# 09:10 → ER FS 09:12 → SDC 12:02 → MERGE 12:02 → SDC 17:20
PROVIDERS: ATTEND Surgery
DX: K80.10 Calculus of gallbladder with chronic cholecystitis without obstruction (principal); I13.0 Hypertensive heart and chronic kidney disease with heart failure and stage 1 through stage 4 chronic kidney disease, or unspecified chronic kidney disease; I50.9 Heart failure, unspecified; I25.10 Atherosclerotic heart disease of native coronary artery without angina pectoris; G47.33 Obstructive sleep apnea (adult) (pediatric); F17.220 Nicotine dependence, chewing tobacco, uncomplicated; E11.42 Type 2 diabetes mellitus with diabetic polyneuropathy; E66.01 Morbid (severe) obesity due to excess calories; E11.22 Type 2 diabetes mellitus with diabetic chronic kidney disease; N18.4 Chronic kidney disease, stage 4 (severe); Z68.41 Body mass index [BMI] 40.0-44.9, adult; Z86.73 Personal history of transient ischemic attack (TIA), and cerebral infarction without residual deficits; Z79.82 Long term (current) use of aspirin; Z79.4 Long term (current) use of insulin; Z79.899 Other long term (current) drug therapy; Z80.0 Family history of malignant neoplasm of digestive organs; Z83.3 Family history of diabetes mellitus; Z95.5 Presence of coronary angioplasty implant and graft; Z79.891 Long term (current) use of opiate analgesic
CPT/HCPCS: 36415; 47563; 71045; 76000; 76705; 80053; 81000; 82962; 83690; 83880; 85025; 93005; 99284; U0002; 87635; 88304

== ENCOUNTER 2020-06-17 03:21 | Emergency (ER) | payer OTHER ==
[~2020-06-17] VITALS: Ht 175.3 cm; Wt 138.4 kg
[~2020-06-17 03:21] MED LIST changes: +BUME2TAB7 PO
[2020-06-17 03:42] VITALS: BP 0/0
--- NOTE | 2020-06-17 03:45 | NUR ---
PT ARRIVED [facility]IA [facility] WITH CPR IN PROGRESS AND AN 7.5 ETT PLACED AT 27 AT THE LIP. PT TRANSFERRED TO CART AND CPR CONTINUED. THUMPER PLACED ON PT AND RESPIRATIONS CONTINUED VIA BVM. PER EMS WOODWORKING BENCH CARPENTER: 3 AMPS OF EPI, 2 DOSES OF NARCAN 0324 PT ARRIVED [facility]IA [facility] WITH CPR IN PROGRESS 0328 AMP OF BICARB 0329 THUMPER STARTED 0330 PULSE CHECK, APM EPI, THUMPER RESTARTED 0335 PULSE CHECK, THUMPER RESUMED 0335 BLOOD SUGAR CHECKED: 433 0336 AMP OF EPI 0340 PULSE CHECK ASYSTOLE 0342 TIME OF CALLED BY PROVIDER
--- NOTE | 2020-06-17 03:53 | ED General ---
General Stated Complaint: CODE BLUE Source of Information: Patient, EMS, Old Records, RN/MD Exam Limitations: No Limitations History of Present Illness Date Seen by Provider: Jun 17, 2020 Time Seen by Provider: 03:24 Initial Comments This patient is a 54-year-old male presents to the [facility] for cardiac arrest and asystole via EMS. EMS was called to the scene for patient Having syncopal episodes and not feeling well. Patient reportedly had gallbladder surgery yesterday and was released from the hospital yesterday afternoon. Patient has had numerous episodes of nausea vomiting is syncopal type episodes throughout the day. Patient was sick in the stomach with the bathroom and thought it was normal vomit and became unresponsive. EMS was called to scene found the patient to be cardiac arrest with asystole. They began CPR they have given 3 rounds of epinephrine [address] and did intubate the patient was a 7.5 ET tube. Upon arrival the patient has fixed and dilated pupils. His Russell his bladder and bowel. Patient had no spontaneous respirations and no pulse cardiac rhythm. Be asystole/PDA with a heart rate of 10. Patient's skin appear to be mottled. We continued ACLS care. Patient has several rounds of CPR. Patient included couple more rounds of epinephrine and sodium bicarbonate and calcium chloride. Resuscitation attempts were unsuccessful. Patient was pronounced at 0342. Additional history from family. Patient has gallbladder surgery yesterday. Patient has been having issues with syncopal and near syncopal episodes for couple weeks now. And it felt that is causing gallbladder issues the patient is gallbladder out because he did have gallstones on exam. From her previous visit. Patient apparently had several syncopal episodes this afternoon they state the patient was never much for complainer but did have end-stage renal disease and was been discussed about getting placed on dialysis with nephrology. Patient also had cardiac disease and had stents placed within the past year has severe diabetes and hypertension. Patient reportedly had been found on the floor twice this afternoon after getting home sweating and had passed out. Patient also had been complaining of nausea. But did not vomit. Patient did have 3 different COVID tests taking in the past week. And actually had one earlier yesterday prior to surgery all 3 COVID tests were negative reported by family. Timing/Duration: 12 Hours Severity: Severe Allergies and Home Medications Patient Home Medication List Home Medication List Reviewed: Yes Review of Systems Review of Systems Constitutional: see HPI EENTM: No see HPI, No no symptoms reported, No ear discharge, No hearing loss, No ear pain, No blurred vision, No double vision, No eye pain, No tearing, No vision loss, No dental problems, No hoarseness, No mouth pain, No mouth swelling, No epistaxis, No nose congestion, No nose pain, No throat pain, No throat swelling, No other Respiratory: see HPI Cardiovascular: see HPI Gastrointestinal: No RUQ, No LUQ, No RLQ, No LLQ, No no symptoms reported; see HPI; No abdominal pain, No constipation, No diarrhea, No dysphagia, No hematemesis, No heartburn, No jaundice, No loss of appetite, No melena; nausea; No vomiting, No other Skin: No no symptoms reported, No see HPI; change in color; No change in hair/nails, No dryness, No hx of skin cancer, No lesions, No lumps, No pruritus, No rash, No other All Other Systems Reviewed Negative Unless Noted: Yes Past Bizrtmz-Mapidj-Dedefy Hx Patient Social History Recent Foreign Travel: No Contact w/Someone Who Travel: No Physical Exam Vital Signs Capillary Refill : Height, Weight, BMI Height: '" Weight: lbs. oz. kg; BMI Method: General Appearance: Other (patient's pupils fixed and dilated skin is mottled spontaneous respirations and no spontaneous pulse patient intubated CPR in progress) HEENT: Pale Conjunctivae (L), Pale Conjunctivae (R) Respiratory: Other (no spontaneous respirations.) Cardiovascular: Other (no pulse patient is asystole.) Gastrointestinal: Other (slightly distended abdomen patient is obese. Surgical sites from laparoscopic cholecystectomy present) Neurologic/Psychiatric: Other (patient is completely unresponsive.) Skin: Mottled Progress/Results/Core Measures Suspected Sepsis SIRS Temperature: Pulse: Respiratory Rate: Blood Pressure / Mean: Results/Orders Lab Results Laboratory Tests Test 06/17/20 03:34 Range/Units Glucometer 433 *H 70-110 MG/DL Vital Signs/I&O Capillary Refill : Progress Note : Time: 04:06 Progress Note Patient was pronounced at 0 342 please see critical care note. Please review nurse's notes for full description of ACLS protocols including medications given. Corner has been called. Critical Care Note Critical Care Date of : Jun 17, 2020 Time of : 03:42 Progress Patient had full ACLS care started at the residence via EMS and continued in the emergency department upon arrival. Patient had a total of 3 epinephrines 1 Narcan prior to arrival. Patient also had ET tube placed by EMS and I hope cat heter in the right lower extremity via EMS. CPR was in progress upon arrival. We continued CPR placed patient placed under thumper continue BVM 100% O2. ET tube was adjusted or back 2 cm and had breath sounds in all lobes of the lungs. Pupils were fixed and dilated skin was mottled patient got an additional 2 epinephrine 1 bicarbonate 1 calcium chloride. Continued CPR no spontaneous pulse no respirations pupils fixed and dilated skin mottled patient had already lost his bladder. Patient was pronounced at 0 342. Departure Impression Primary Impression: Cardiopulmonary arrest Additional Impressions: Status post laparoscopic cholecystectomy CAD (coronary artery disease) Chronic renal failure Diabetes Benign hypertension Syncope and collapse Disposition: 20 Condition: Departure-Patient Inst. Referrals: NO,LOCAL PHYSICIAN (PCP/Family) Primary Care Physician NORRIS NGUYEN MD Jun 17, 2020 03:53
--- NOTE | 2020-06-17 04:30 | NUR ---
PT. HAS HAD 3 NEG. COVID TESTS.
--- NOTE | 2020-06-17 04:45 | NUR ---
SHALINI CONTACTED AND INFORMED THAT THIS WILL BE A THEATRE DIRECTOR'S CASE. SHALINI IS GOING TO CONTACT [facility] IN [place] TO SEE IF THEY WILL COLLECT THE PT UNTIL THE THEATRE DIRECTOR MAKES DECISION.
== END 2020-06-17 03:42 | disposition expired ==
LOC: EDBD 03:25 → ER FS 03:25
DX: I46.9 Cardiac arrest, cause unspecified (principal); E11.22 Type 2 diabetes mellitus with diabetic chronic kidney disease; I12.9 Hypertensive chronic kidney disease with stage 1 through stage 4 chronic kidney disease, or unspecified chronic kidney disease; N18.9 Chronic kidney disease, unspecified; I25.10 Atherosclerotic heart disease of native coronary artery without angina pectoris; R55 Syncope and collapse; Z90.49 Acquired absence of other specified parts of digestive tract
CPT/HCPCS: 82962